=== PATIENT | male | born 1935 | race Caucasian/White ===

== ENCOUNTER → 2019-02-06 | Outpatient (CLI) | payer MEDICARE ==
[~2019-02-06] MED LIST: ASPI325T8 PO; ATEN25TA PO; DOCU100C63 PO; LISI10TA2 PO; PREG150C PO; PROVASTATIN; TRAM50TA PO
--- NOTE | 2019-02-06 17:38 | RAD ---
CT LUMBAR SPINE WO CONTRAST Indication: Lumbar radiculopathy. Exposure: One or more of the following individualized dose reduction techniques were utilized for this examination: 1. Automated exposure control 2. Adjustment of the mA and/or kV according to patient size 3. Use of iterative reconstruction technique. Technique: Standard imaging without intravenous contrast. Comparison: October 03, 2012, but note that different technique was used on the 2 exams limiting comparison. FINDINGS: There has been fusion at L4-L5 and L5-S1 with intervertebral spacers and posterior spinal fixation rods and pedicle screws. No evidence of acute fracture line or aggressive bone destruction. Vertebral body height is intact. Alignment intact without significant spondylolisthesis. T11-T12: Degenerative spondylosis. No high-grade stenosis. T12-L1: Degenerative spondylosis. There is facet joint hypertrophy and ligament flavum calcification. Mild spinal canal effacement without high-grade stenosis. L1-L2: Degenerative spondylosis with facet joint hypertrophic change. Mild narrowing of the spinal canal knee AP diameter. No high-grade osseous spinal stenosis. L2-L3: There appears to have been a prior right laminectomy since the prior scan. Degenerative spondylosis with facet joint hypertrophy and posterior osteophytes. There is disc protrusion and calcification. The spinal canal is partially decompressed since the prior study. At least mild neural foraminal stenosis bilaterally. L3-L4: Degenerative spondylosis with posterior disc protrusion and calcification and facet joint hypertrophic change. The amount of calcified posterior disc protrusion appears slightly greater on today's study. At least moderate spinal stenosis. Moderate to severe neural foraminal stenosis and lateral recess narrowing. L4-L5: Postsurgical changes, no high-grade central spinal canal encroachment. Neural foraminal narrowing bilaterally. L5-S1: Postsurgical changes. No high-grade spinal canal narrowing. Neural foraminal narrowing appears greater on the right. Calcified and ectatic. The aorta is not completely included on on today's exam. 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 Just above this, there is another area of saccular aneurysm which measures at least 3 cm, not readily apparent on the prior study. The right proximal common iliac artery is ectatic similar to prior. IMPRESSION: 1. There appears to have been a laminectomy at L2-S3 on the right since the prior study, resulting in some decompression of the spinal canal at this level. 2. Other postsurgical changes from L4 through S1 are again demonstrated. 3. Multilevel degenerative spondylosis with stenosis is again identified. 4. The degree of calcified disc protrusion at L3-4 appears slightly greater than on the prior study. 5. Otherwise the degenerative findings are roughly similar as the previous exam. 6. Partially visualized aorta is ectatic with at least 2 areas of mild saccular aneurysmal dilatation, appear to have mildly progressed since prior CT exam from 2012. Dedicated abdominal aortic ultrasound or CT recommended for further evaluation. Electronically signed by: Miguel Vasquez MD (02/06/2019 5:35 PM) [id number]
== END | disposition home or self-care (01) ==
LOC: CT 12:18
PROVIDERS: ATTEND Neurological Surgery
DX: M47.26 Other spondylosis with radiculopathy, lumbar region (principal); M48.07 Spinal stenosis, lumbosacral region; M51.16 Intervertebral disc disorders with radiculopathy, lumbar region; M47.814 Spondylosis without myelopathy or radiculopathy, thoracic region; M89.38 Hypertrophy of bone, other site; I72.8 Aneurysm of other specified arteries
CPT/HCPCS: 72131

== ENCOUNTER → 2019-03-29 | Outpatient (CLI) | payer MEDICARE ==
[~2019-03-29] MED LIST changes: +APIX5TAB PO; +FURO-68 PO; +PRAV40TA2 PO; +TAMS0.4C97 PO
--- NOTE | 2019-03-30 12:15 | PAIN ---
DATE OF SERVICE: 03/29/2019 INITIAL CONSULTATION FOR PAIN CLINIC CHIEF COMPLAINT: Low back and right lower extremity pain. HISTORY OF PRESENT ILLNESS: This is an 83-year-old male who presents with history of pain for many years, 10+, status post multiple lumbar surgeries with eventual instrumentation and fusion. He has had multiple physical therapies over the years, also interventional techniques for pain management, facet injections, epidural steroid injections, chiropractic treatment, counseling, and exercise, all of which were only temporary, but they did help to some extent. The patient reports taking tramadol, Lyrica, and Tylenol, all of which do decrease the pain, but only very minimally. The patient reports he has had significant pain in the low back for many years, sometimes better with activity, sometimes worse with activity. The patient describes the pain as stabbing, shooting, throbbing, constant, sharp in the back, changes during the day, radiating down the right leg, and burning pain in the back. The patient reports it awakens him from sleep at least 3-4 times a night, does not affect his bowel or bladder control; however, but does affect his ability to walk. He has significant fatigability, especially in the right leg. The patient rates his disability 0-10, 10 being the worst, is an 8 with social activity, recreation, 6 with family home responsibilities, 5 with occupation, 1 with self-care, and 1 with life support activities. The patient did have recent visit with his neurosurgeon, who is not recommending any further surgery at this time. He did have an MRI scan also showing stable lumbar spine compared with 04/07/2017 posterior fixation at ____ anterior fusion at L4-S1, and right laminotomy at L2-L3 and L5-S1, mild to moderate central canal stenosis at L2-L3 and L3-L4 due to generalized disk disease, lower lumbar facet arthropathy as well. PAST MEDICAL HISTORY: Significant for irregular heart rhythm, cigarette smoking, and arthritis. PREVIOUS SURGERY: Include cataract surgery, lumbar surgery many times with instrumentation and fusion, cholecystectomy, nephrectomy, prostate surgery, and hernia repair in the past. CURRENT MEDICATIONS: Include docusate, aspirin, Lyrica, lisinopril, tramadol, Flomax, pravastatin, Lasix, and Eliquis. ALLERGIES: The patient has no known drug allergies. FAMILY HISTORY: Significant for heart disease. SOCIAL HISTORY: The patient does not drink alcohol, only very rarely, smokes 1 pack of cigarettes, has for 30+ years. He is and lives with his spouse, lives locally in [place], [place]. 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 REVIEW OF SYSTEMS: The patient's review of systems is positive for those items mentioned in history of present illness. All systems reviewed and otherwise negative. It is complete, full and well documented on the patient's chart. PHYSICAL EXAMINATION: VITAL SIGNS: The patient's blood pressure is 124/55, pulse 58, respirations 18, temperature ____ degrees Fahrenheit. Height is 5 feet 11 inches, weight is 230 pounds. GENERAL: The patient is awake, alert, oriented, appropriate, very pleasant demeanor. HEENT: Head shows normocephalic and atraumatic. Extraocular movements are intact and symmetrical. Oral cavity: Mucous membranes are moist and pink. Dentition is intact. NECK: Shows anterior throat is supple, without palpable lymphadenopathy noted. Swallow reflex symmetrical. CHEST: Shows normal on inspection. Breath sounds are clear to auscultation bilaterally. HEART: Shows S1 and S2 clear. No murmurs auscultated. ABDOMEN: Soft, nontender, and nondistended. No palpable organomegaly is noted. No rebound or guarding demonstrated. BACK: Shows spine grossly in the midline. Some significant flattening noted of the lumbar curvature. Paraspinous musculature shows well-healed surgical scarring. Lumbar paraspinous muscles with palpation shows some moderate tenderness diffusely bilaterally without significant radiation, but is very tender throughout the upper, middle, and lower distributions of the paraspinous musculature. The patient shows good rotational motion, slightly limited with extension to less than 10 degrees, right and left lateral rotation at 10 degrees without significant pain reported. Forward flexion is less than 45 degrees, but not secondary to pain, secondary to mechanical limitation. EXTREMITIES: The patient's lower extremities show deep tendon reflexes at 1+ in the patellar and tendocalcaneus tendons. Motor exam is strong with approximately 4 on a scale of 5 on the right and 5/5 on the left with dorsiflexion, extension, quadriceps, and hamstring flexion and symmetrical. Peripheral pulses are 1+ posterior tibia. No peripheral edema is noted. Lower extremities are warm and dry to the touch, equal in color and appearance. Straight leg raise noted to be positive on the right at about 40 degrees, decreased with knee flexion, left side is negative. Gaenslen's and Joel's maneuvers are negative bilaterally. The patient is able to stand, has difficulty trying to stand on the toes. He loses his balance when he is standing on his right leg alone and has a slight favoring gait, does appear to favor the right lower extremity with ambulation, but not using any assistive devices to ambulate such as canes or walkers. SKIN: The patient's skin shows warm and dry, good turgor. No edema. No sores, rashes, or bruising throughout. IMPRESSION: 1. This is an 83-year-old male with long history of low back and right lower extremity pain status post multiple interventions, multiple modalities and therapies as well as surgeries with anterior and posterior fusion and instrumentation with persistent radiculopathy and low back pain. 2. MRI scan of lumbar spine as noted. 3. Irregular heart rate. 4. Arthritis. PLAN: Options were discussed with the patient including conservative medical managements, physical therapies, and interventional techniques. He would like to pursue interventional techniques. We discussed a spinal cord stimulator using description as well as anatomical models to describe the procedure. The patient was given information regarding the stimulator to review. This may be the best option for him with surgical evaluation recently without any further surgical indication. The patient is very interested in this and would like to pursue this. We will make the arrangements for further psychological evaluation and preauthorization for spinal cord stimulator trial. The patient to return once Psychiatry has been cleared and we will proceed at that time. MERLIN LAMBERT MD DR: KENIA/prashanth JOB#: [id number] / [id number]
== END | disposition home or self-care (01) ==
LOC: PNCL 10:25
PROVIDERS: ATTEND Anesthesiology
DX: M79.604 Pain in right leg (principal); M54.5 Low back pain; M19.90 Unspecified osteoarthritis, unspecified site; F17.210 Nicotine dependence, cigarettes, uncomplicated; Z90.49 Acquired absence of other specified parts of digestive tract; Z90.89 Acquired absence of other organs; Z79.82 Long term (current) use of aspirin; Z79.891 Long term (current) use of opiate analgesic; Z79.899 Other long term (current) drug therapy; Z79.1 Long term (current) use of non-steroidal anti-inflammatories (NSAID); Z79.01 Long term (current) use of anticoagulants
CPT/HCPCS: G0463

== ENCOUNTER → 2019-05-01 | Outpatient (CLI) | payer MEDICARE ==
[~2019-05-01] MED LIST changes: +LIDOCAINE 1% PF 2 ML VIAL. ONE
--- NOTE | 2019-05-02 01:55 | PAIN ---
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 HISTORY OF PRESENT ILLNESS: The patient is an 83-year-old male, who returns for followup for a spinal cord stimulator placement today; after psychological evaluation and preauthorization, the patient would like to proceed; still pain in the low back, right lower extremity as it was previously, posterior gluteus, posterolateral thigh, posterior calf and ankle on the right side significantly across the low back to some degree as well. The patient reports it is an 8 on a scale of 10 at all times, over the past week worst, average and least and is an 8 today. Pain is sharp, shooting, burning, radiating, constant, severe, and unbearable at times; worse with getting up and down from positions, better with sitting or lying down, worse with walking. The patient reports it does not awaken him from sleep most nights. PHYSICAL EXAMINATION: VITAL SIGNS: The patient's blood pressure 119/58, pulse 63, respirations 18, temperature 98.0 degree Fahrenheit, weight is 231 pounds. GENERAL: The patient is awake, alert, oriented, appropriate; very pleasant demeanor. The patient is accompanied by his spouse. HEENT: Shows normocephalic, atraumatic. Extraocular movements are intact and symmetrical. Oral cavity: Mucous membrane is moist and pink. Dentition is intact. NECK: Shows anterior throat supple without palpable lymphadenopathy noted. Swallow reflex is symmetrical. CHEST: Shows normal on inspection. Breath sounds are clear to auscultation bilaterally. HEART: Shows S1, S2, clear. No murmurs auscultated. ABDOMEN: Soft, nontender, nondistended. No palpable organomegaly is noted. No rebound or guarding demonstrated. BACK: Shows spine is grossly in the midline; normal appearing thoracic kyphosis and flattening of lumbar lordotic curvature; lumbar paraspinous musculature symmetrical but flattened with well-healed surgical scarring noted. Paraspinous musculature shows, with palpation, it is moderately tender bilaterally diffusely throughout the upper, middle, and lower distribution of paraspinous muscles without radiation. EXTREMITIES: The patient's lower extremities show deep tendon reflexes 1+ in the patellar and tendo-calcaneus tendons. Motor exam is strong with approximately 4 on a scale of 5 with right dorsiflexion, extension 5/5 on the left. Peripheral pulses are 1+. No peripheral edema is noted. IMPRESSION AND PLAN: Options were discussed with the patient. The patient's old chart was reviewed as well as his current medication regimen is updated. Current review of systems is updated today as well. We will proceed with a spinal cord stimulator temporary lead placement x2 today with fluoroscopic guidance. Risks were again discussed including but not limited to bleeding, infection, possibility of epidural hematoma, subsequent neurological compromise, dural puncture, headaches, spinal cord and/or nerve damage, exposure of fluoroscopy as well as poor coverage of stimulation and poor results regarding pain control. The patient understands and wishes to proceed. The patient will return to the clinic in approximately 1 week for followup and evaluation of the stimulator temporary lead placement for trial at that time. PROCEDURE: Temporary spinal cord stimulator lead placement x2 using C-arm fluoroscopic guidance using local anesthetic under sterile prep and drape. The patient was in prone position using C-arm fluoroscopy for both AP and lateral views, entered into the T12-L1 epidural space using preservative-free normal saline loss of resistance technique via a 14-gauge Hustead styletted needle x2 each with preservative-free normal saline, loss of resistance technique, and negative aspiration. Again under direct visualization, spinal cord stimulator wires were threaded first midline without difficulty and verified in the midline by AP view and posterior epidural space bilateral views. Second wire was inserted in the same fashion at the same level with AP and lateral views verifying the midline position to the right of the initial wire placement and posterior in the epidural space with lateral visualization on the C-arm fluoroscopy. Stimulation mapping was then carried out by [employer] InspectorFiliberto, with good coverage of all the areas of pain in the low back and the lower extremities. At this time, the needles were removed. Stylets were removed under intermittent visualization off the leads to ensure no movement. Lidocaine 1% was instilled to prepare for suture placement at the site of the insertion of the stimulator wires. Using 2-0 silk sutures, these were then secured to the skin and anchoring devices applied with the stimulator wires. Sterile Tegaderms and bandage were applied. The patient's condition at discharge was stable. The patient tolerated the procedure well, had no immediate complications, and was discharged at home under his own power with his spouse driving today. The patient will follow up in approximately 1 week for removal and evaluation at that time. MERLIN LAMBERT MD DR: KENIA/prashanth JOB#: [id number] / [id number]
== END ==
LOC: PNCL 12:58
PROVIDERS: ATTEND Anesthesiology
DX: M54.16 Radiculopathy, lumbar region (principal); M96.1 Postlaminectomy syndrome, not elsewhere classified; M48.061 Spinal stenosis, lumbar region without neurogenic claudication
CPT/HCPCS: 63650; C1897

== ENCOUNTER → 2019-05-08 | Outpatient (CLI) | payer MEDICARE ==
[~2019-05-08] MED LIST changes: +ASPI81TA50 PO; -LIDOCAINE 1% PF 2 ML VIAL. ONE
--- NOTE | 2019-05-08 13:14 | PAIN ---
DATE OF SERVICE: 05/08/2019 PROGRESS NOTE FOR PAIN CLINIC DIAGNOSES: Lumbar radiculopathy with lumbar spinal stenosis, lumbar post-laminectomy syndrome. HISTORY OF PRESENT ILLNESS: The patient is an 83-year-old male, who returns for followup status post spinal cord stimulator trial. For the past week, the patient reports he has done quite well, reports about 98% improvement overall. He is unsure, however, if the tramadol that he has been taking for the past few days has made the difference instead of the stimulator. The patient feels that the stimulator did help, but up until the last 2-3 days was not helping significantly. The patient reports that the tramadol has made a big difference, although it was helping him before the trial period as well. He was out of it during the first part of the period and is not sure, which helped more. The patient will continue taking the tramadol as prescribed and see how he does after the trial stimulator is removed today. The patient reports his pain is an 8 on a scale of 10 at its worst over the past week, 4-5 on an average, 2 at its least and is a 2 today. The patient reports it is tingling, burning, dull in the low back and the right lower extremity as it was previously. No new motor or sensory deficits. No new bowel or bladder incontinence or other complaints. PHYSICAL EXAMINATION: VITAL SIGNS: The patient's blood pressure 122/60, pulse 71, respirations 18, temperature 97.7 degrees Fahrenheit, weight is 241 pounds. GENERAL: The patient is awake, alert, oriented, appropriate, very pleasant demeanor. HEENT: Shows normocephalic, atraumatic. Extraocular movements are intact and symmetrical. Oral cavity: Mucous membranes moist and pink. NECK: Shows anterior throat supple. CHEST: Shows normal on inspection. Breath sounds are clear bilaterally. HEART: Shows S1, S2 clear. ABDOMEN: Soft, nontender, nondistended. BACK: The patient's back shows spine grossly in the midline. The patient's bandages from his stimulator trial were taken down; and under sterile technique, sutures were removed and leads were removed x 2. Sites are clean and dry. No erythema, no drainage, no tenderness and no exudate. The patient has good rotational motion of lumbar spine without difficulty. EXTREMITIES: Lower extremities show deep tendon reflexes are 1+ in the patellar and tendo-calcaneus tendons. Motor exam is approximately 4 on a scale of 5 on the right with dorsiflexion and extension, 5/5 on the left. Peripheral pulses are 1+. No peripheral edema is noted bilaterally. Options were discussed with the patient. The patient's old chart was reviewed as his current medication regimen updated. Current review of systems updated today as well. We will make arrangements as the patient would like to schedule discussion with spine surgeon for placement of a permanent stimulator; and in the next few days, again, while the stimulator is removed and still taking his tramadol, we will make a decision whether or not he would like to proceed with the permanent implant. I am going to make the arrangements to speak with the surgeon. If the patient feels that this is not necessary, we will change those arrangements as necessary. MERLIN LAMBERT MD DR: KENIA/prashanth JOB#: [id number] / [id number]
== END | disposition home or self-care (01) ==
LOC: PNCL 11:56
PROVIDERS: ATTEND Anesthesiology
DX: M48.061 Spinal stenosis, lumbar region without neurogenic claudication (principal); M54.16 Radiculopathy, lumbar region; M96.1 Postlaminectomy syndrome, not elsewhere classified
CPT/HCPCS: G0463

== ENCOUNTER 2020-04-24 00:20 | Emergency (ER) | payer MEDICARE ==
[~2020-04-24] VITALS: Ht 180.3 cm; Wt 96.0 kg
[2020-04-24 02:00] VITALS: BP 148/77
--- NOTE | 2020-04-24 02:17 | PHYS DOC ---
Past Medical History Past Medical History: Other Additional Past Medical Histor: CARDIAC DYSRHYTHMIA, KIDNEY REMOVAL. Past Surgical History: Cholecystectomy, Lumbar Laminectomy, Other Additional Past Surgical Histo: KIDNEY REMOVAL. Smoking Status: Current Every Day Smoker Alcohol Use: Rarely General Adult EDM: Chief Complaint: LOWER EXT PAIN HPI: HPI: 84 yo M PMH chronic back pain with RLE neuropathy, presents to the ed with , c/o "all I want is a shot of pain medicine," chronic right hip "burning" radiating pain that goes down his leg, has been present for the past 3 to 4 years. Has had "7-8" back surgeries with Dr. Stein and tramadol is the only thing that works. His primary care physician Dr. Queen prescribes tramadol 50 mg, 8 tablets daily, a 90-day supply at at time. Patient reports ran out on Tuesday and cannot refill the medication until Tuesday (per pcp and pharmacy). Denies any new trauma or new injury. Pain is constant and has not changed. Denies any saddle anesthesia, urinary or bowel retention or incontinence, fever, abdominal pain, syncope or back pain. Pt states he couldn't sleep because of the pain. Cannot take nsaids-only has 1 kidney. MRI lumbar spine from [address] lumbar spine in 2019 reviewed. S/p right laminectomy at L2-S3, multilevel degenerative spondylosis with stenosis, disc protrusion at L3-4, and ectatic saccular aneurysmal dilatation. Review of Systems: Review of Systems: Constitutional: Denies fever or chills. [] Eyes: Denies change in visual acuity. [] HENT: Denies nasal congestion or sore throat. [] Respiratory: Denies cough or shortness of breath. [] Cardiovascular: Denies chest pain or edema. [] GI: Denies abdominal pain, nausea, vomiting, bloody stools or diarrhea. [] : Denies dysuria. [] Or hematuria Musculoskeletal: Denies joint pain. [] Or swelling, no saddle anesthesia, no urinary bowel retention or incontinence Integument: Denies rash. [] Neurologic: Denies headache, focal weakness or sensory changes. [] Endocrine: Denies polyuria or polydipsia. [] Lymphatic: Denies swollen glands. [] Psychiatric: Denies depression or anxiety. [] Heart Score: Risk Factors: Risk Factors: DM, Current or recent (<one month) smoker, HTN, HLP, family history of CAD, obesity. Risk Scores: Score 0 - 3: 2.5% MACE over next 6 weeks - Discharge Home Score 4 - 6: 20.3% MACE over next 6 weeks - Admit for Clinical Observation Score 7 - 10: 72.7% MACE over next 6 weeks - Early Invasive Strategies Allergies: Allergies: Allergies Coded Allergies Type Severity Reaction Last Updated Verified No Known Drug Allergies 04/19/14 No Physical Exam: PE: Constitutional: Well developed, well nourished, no acute distress, non-toxic appearance. [] HENT: Normocephalic, atraumatic, bilateral external ears normal, oropharynx moist, no oral exudates, nose normal. [] Eyes: EOMI, conjunctiva normal, no discharge. [] Neck: Normal range of motion, supple, no stridor. [] Cardiovascular:Heart rate regular rhythm, no murmur [] Lungs & Thorax: Bilateral breath sounds clear to auscultation [] Abdomen: Bowel sounds normal, soft, no tenderness, no masses, no pulsatile masses. [] Skin: Warm, dry, no erythema, no rash. [] Back: No tenderness, no CVA tenderness. [] Extremities: No tenderness, no cyanosis, no clubbing, ROM intact, +1/4 bl reece bauer ma Neurologic: Alert and oriented X 3, normal motor function, normal sensory function, no focal deficits noted. [] Psychologic: Affect normal, judgement normal, mood normal. [] Current Patient Data: Vital Signs: Vital Signs Date Time Temp Pulse Resp B/P (MAP) Pulse Ox O2 Delivery O2 Flow Rate FiO2 04/24/20 02:00 84 18 148/77 (100) 94 Room Air 04/24/20 00:34 98.1 98.1 EKG: EKG: [] Radiology/Procedures: Radiology/Procedures: [] Course & Med Decision Making: Course & Med Decision Making Pertinent Labs and Imaging studies reviewed. (See chart for details) Concern for chronic right lower extremity neuropathy-AAA on differential but pt is calm, mildly hypertensive, in no distress and denies any chest/back/abdominal pain - pain is in right hip and radiates down his leg, no new characteristics of the pain. Pt requesting pain medication, declines any repeat imaging. No new trauma. Red flags for back pain reviewed. Strict ED return precautions were given for worsening pain, abdominal or back pain, syncope, chest pain, neurologic deficits, saddle anesthesia or urinary bowel retention or incontinence. Was given 1 dose of analgesia in the ED and will prescribe Tylenol and gabapentin -patient will be able to fill his medication in 1 day. Encouraged urgent outpatient follow-up with PMD and pain management. Life-threatening processes were considered but are low suspicion at this time, given history and physical exam. Pt was educated on all prescription medications and adverse effects. All patient's questions were answered and pt was stable at time of discharge. Life/limb-threatening differential includes but is not limited to, aortic dissection/aneurysm, cauda equina syndrome, transverse myelitis, spinal cord compression, epidural abscess or hematoma, osteomyelitis, disc herniation, surgical abdomen, stable or unstable fracture, renal colic/urosepsis, musculoskeletal injury, traumatic injury, intraabdominal or pelvic bleeding, I spoken with the patient and her caregivers. I explained the patient's condition, diagnoses and treatment plan based on the information available to me at this time. I have answered the patient and her caregiver's questions and addressed any concerns. The patient and her caregivers have a good understanding of patient's diagnosis, condition and treatment plan as can be expected at this point. Vital signs have been stable. Patient's condition is stable and appropriate for discharge from the emergency department. Patient will pursue further outpatient evaluation with primary care physician or other designated or consulting physician as outlined in the discharge instructions. The patient and/or caregivers are agreeable to this plan of care and follow-up instructions have been explained in detail. The patient and/or caregivers have received these instructions in written form and have expressed an understanding of the discharge instructions. The patient and/or caregivers are aware that any significant change of condition or worsening of symptoms should prompt immediate return to this or the closest emergency department or call to 911. Bi Disclaimer: Bi Disclaimer: This electronic medical record was generated, in whole or in part, using a voice recognition dictation system. Departure Departure Impression: Primary Impression: Chronic pain Additional Impression: Neuropathic pain of right lower extremity Disposition: HOME, SELF-CARE Condition: STABLE Referrals: BOYD QUEEN (PCP) Patient Instructions: Pain, Neuropathic Additional Instructions: FOLLOW UP WITH PAIN MANAGEMENT: [facility] Address: [address] [facility] [address] [address] EMERGENCY DEPARTMENT GENERAL DISCHARGE INSTRUCTIONS Thank you for coming to [facility] Emergency Department (ED) today and trusting us with you care. We trust that you had a positive experience in our Emergency Department. If you wish to speak to the department management, you may call the Director at [phone]. YOUR FOLLOW UP INSTRUCTIONS ARE FOLLOWS: 1. Do you have a private Doctor? If you do not have a private doctor, please ask for a resource list of physicians or clinics that may be able to assist you with follow up care. 2. The Emergency Physicain has interpreted your x-rays. The X-Ray specialist will also review them. If there is a change in the findings, you will be notified in 48 hours when at all possible. 3. A lab test or culture has been done, your results will be reviewed and you will be notified if you need a change in treatment. ADDITIONAL INSTRUCTIONS AND INFORMATION: 1. Your care today has been supervised by a physician who is specially trained in emergency care. Many problems require more than one evaluation for a complete diagnosis and treatment. We recommend that you schedule your follow up appointment as recommended to ensure complete treatment of you illness or injury. If you are unable to obtain follow up care and continue to have a problem, or if your condition worsens, we recommend that you return to the ED. 2. We are not able to safely determine your condition over the phone nor are we able to give sound medical advice over the phone. For these safety reasons, if you call for medical advice we will ask you to come to the ED for further evaluation. 3. If you have any questions regarding these discharge instructions please call the ED at [phone]. SAFETY INFORMATION: In the interest of safety, wellness, and injury prevention; we encourage you to wear your sealbelt, if you smoke; quite smoking, and we encourage family to use a protective helmet for bicycling and other sporting events that present an increased risk for head injury. IF YOUR SYMPTOMS WORSEN OR NEW SYMPTOMS DEVELOP, OR YOU HAVE CONCERNS ABOUT YOUR CONDITION; OR IF YOUR CONDITION WORSENS WHILE YOU ARE WAITING FOR YOUR FOLLOW UP APPOINTMENT; EITHER CONTACT YOUR PRIMARY CARE DOCTOR, THE PHYSICIAN WHOSE NAME AND NUMBER YOU WERE GIVEN, OR RETURN TO THE ED IMMEDIATELY. Scripts Acetaminophen (TYLENOL) 325 Mg Tablet 2 TAB PO QID for 7 Days, #56 TAB 2 Refills Prov: AUSTYN KIMBLE DO 04/24/20 Gabapentin (GABAPENTIN) 600 Mg Tablet 600 MG PO TID for NEUROGENIC PAIN for 7 Days, #21 TAB Prov: AUSTYN KIMBLE DO 04/24/20 AUSTYN KIMBLE DO Apr 24, 2020 02:17
[2020-04-24] MEDS ORDERED: traMADol 50 MG TABLET PO ONE (03:00)
[2020-04-24] MEDS ORDERED: ACET325T9 PO (03:00)
[2020-04-24] MEDS ORDERED: GABA600T7 PO (03:00)
== END 2020-04-24 03:12 | disposition home or self-care (01) ==
LOC: ER 00:20
DX: G89.29 Other chronic pain (principal); M79.604 Pain in right leg; G62.9 Polyneuropathy, unspecified; R20.8 Other disturbances of skin sensation; F17.200 Nicotine dependence, unspecified, uncomplicated; Z90.89 Acquired absence of other organs; Z90.49 Acquired absence of other specified parts of digestive tract; Z98.890 Other specified postprocedural states
CPT/HCPCS: 99283

== ENCOUNTER 2021-10-28 17:47 | Inpatient (IN) | payer MEDICARE ==
[~2021-10-28] VITALS: Ht 177.8 cm; Wt 108.4 kg
[~2021-10-28 17:47] MED LIST changes: +ACET325T9 PO; +GABA600T7 PO; +LISI10TA16 PO; -LISI10TA2 PO
[2021-10-28 18:31] LABS: BASE EXCESS COOX -1 mmol/L (-3-3); HCO3 COOX 23 mmol/L (21-28); METHEMOGLOBIN 1.3 % (0.0-1.9); OXYHEMOGLOBIN 50.1 %; PCO2 COOX 36 mmHg (35-46)
[2021-10-28 18:37] LABS: PO2 COOX < 42 mmHg (65-108); SAT O2 COOX 51 % (92-99)
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
[2021-10-28 19:21] LABS: BASO % 1 % (0-3); EOS % 0 % (0-3); LYMPH # 0.6 x10^3/uL (1.0-4.8); LYMPH % 12 % (24-48); MEAN CORPUSCULAR HEMOGLOBIN 24 pg (25-35); MEAN CORPUSCULAR HGB CONC 31 g/dL (31-37); MEAN CORPUSCULAR VOLUME 78 fL (79-100); MONO # 0.3 x10^3/uL (0.0-1.1); MONO % 7 % (0-9); NEUT # 4.2 x10^3/uL (1.8-7.7); NEUT % 81 % (31-73); PLATELET COUNT 156 x10^3/uL (140-400); RED CELL DISTRIBUTION WIDTH 19.3 % (11.5-14.5); WHITE BLOOD COUNT 5.1 x10^3/uL (4.0-11.0)
[2021-10-28 19:24] LABS: HEMOGLOBIN 4.3 g/dL (13.0-17.5)
[2021-10-28 19:37] LABS: FECAL OB PT POSITIVE (NEG)
[2021-10-28 19:39] LABS: CALCIUM 8.5 mg/dL (8.5-10.1); CREATININE 2.2 mg/dL (0.7-1.3); GFR 28.5; POTASSIUM 3.4 mmol/L (3.5-5.1)
[2021-10-28 19:44] LABS: ALBUMIN 2.6 g/dL (3.4-5.0); ALBUMIN/GLOBULIN RATIO 0.9 (1.0-1.7); MAGNESIUM 1.9 mg/dL (1.8-2.4); TOTAL BILIRUBIN 0.5 mg/dL (0.2-1.0); TOTAL PROTEIN 5.6 g/dL (6.4-8.2)
[2021-10-28] MEDS ORDERED: PANTOPRAZOLE IV PUSH 40 MG VIAL. IVP ONE (19:45)
--- NOTE | 2021-10-28 19:57 | RAD ---
AP chest. HISTORY: Short of breath AP view was taken of the chest. Heart is normal in size. There are stimulating leads in the thoracic spinal canal. There is linear scarring or atelectasis in the lung bases. There are no other infiltrat es. There is no effusion. 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 IMPRESSION: 1. There is mild linear basilar scarring or atelectasis without other infiltrates. Electronically signed by: Andres Tovar MD (10/28/2021 7:54 PM) [facility]
[2021-10-28] MEDS: PANTOPRAZOLE SODIUM IV DRIP 80 MG in IV NORMAL SALINE 100ML 100 ML IV SCH (20:29)
[2021-10-28 20:32] LABS: INFLUENZA A PATIENT NEGATIVE (NEGATIVE); INFLUENZA B PATIENT NEGATIVE (NEGATIVE)
[2021-10-28 21:41] VITALS: BP 144/66
[2021-10-28 21:57] VITALS: BP 149/66
[2021-10-28 23:30] VITALS: BP 151/64
[2021-10-28 23:45] VITALS: BP 134/58
[2021-10-29] VITALS (35 sets, daily range): BP systolic 113–161; BP diastolic 47–88
[2021-10-29 00:43] LABS: BACTERIA,URINE MODERATE /HPF (0-FEW); RBC,URINE 0 /HPF (0-2); WBC,URINE TNTC /HPF (0-4)
--- NOTE | 2021-10-29 01:00 | NUR ---
Admitted to ICU room 106 from the ED. Report received from TAMRA Choe. Blood and protonix infusing. Patient awake and able to answer some questions. Family not available at time of admit for further information. Patient reports feeling "tired" and falls asleep easily. No other complaints at this time. NPO. VSS. One more unit PRBCs to infuse. Will continue to monitor.
[2021-10-29] MEDS: PANTOPRAZOLE SODIUM IV DRIP 80 MG in IV NORMAL SALINE 100ML 100 ML IV SCH (04:51)
[2021-10-29 05:29] LABS: BASO % 1 % (0-3); EOS % 1 % (0-3); HEMATOCRIT 21.1 % (39.0-53.0); LYMPH # 1.2 x10^3/uL (1.0-4.8); LYMPH % 23 % (24-48); MEAN CORPUSCULAR HEMOGLOBIN 25 pg (25-35); MEAN CORPUSCULAR HGB CONC 31 g/dL (31-37); MEAN CORPUSCULAR VOLUME 79 fL (79-100); MONO # 0.4 x10^3/uL (0.0-1.1); MONO % 8 % (0-9); NEUT # 3.4 x10^3/uL (1.8-7.7); NEUT % 67 % (31-73); PLATELET COUNT 138 x10^3/uL (140-400); RED BLOOD COUNT 2.66 x10^6/uL (4.30-5.70); RED CELL DISTRIBUTION WIDTH 18.1 % (11.5-14.5); WHITE BLOOD COUNT 5.1 x10^3/uL (4.0-11.0)
[2021-10-29 05:42] LABS: HEMOGLOBIN 6.6 g/dL (13.0-17.5)
[2021-10-29 06:07] LABS: CALCIUM 8.5 mg/dL (8.5-10.1); GFR 31.8; POTASSIUM 3.2 mmol/L (3.5-5.1)
--- NOTE | 2021-10-29 07:50 | EKG ---
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
--- NOTE | 2021-10-29 08:39 | EKG ---
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
--- NOTE | 2021-10-29 09:22 | PDOC2 ---
GI CONSULT Date of Service: DATE: 10/29/21 TIME: : Reason For Consult: severe anemia, GI bleed HPI: HPI: 86 y/o male in ICU, nurse present. He's not a good historian, poor short term memory - doesn't know why he came to the hospital. Per chart and nurse, family reported worsening shortness and breath and BLE edema. Noted w/ Hgb 4.3, MCV 78, INR 1.5 (on Eliquis, also ASA), BUN 44, Cr 2.2, elevated troponin and BNP, +Hemoccult. Transfusions ongoing, Hgb improved to 6.6. No reports of obvious bleeding. He denies reflux/heartburn, dysphagia, n/v, abd pain, diarrhea, constipation, hematochezia, melena, change in appetite, weight loss. EGD and colonoscopy by Dr. Jordan in 06/2009 for atypical chest pain, dyspepsia, dysphagia/odynophagia, and CRC screening showed small hiatal hernia, eryt hematous mucosa in lower third of esophagus (biopsy w/ non-specific inflammation, negative for Melton's), bilious fluid in stomach body, erythema, congestion, and friability in antrum and stomach body (biopsy w/ mild reactive gastropathy and negative for H. pylori), atrophy, congestion, and erythema in duodenal bulb and second part of duodenum (biopsy negative for pathology and ce liac sprue), normal mucosa in the whole colon, 4mm adenomatous transverse colon polyp, 3mm adenomatous rectal polyp, sigmoid diverticulosis, and internal hemorrhoids. Also had 'scopes [place] [address] Jordan. S/p cholecystectomy in 2004 for right-sided midabdominal and flank pain w/ reproduction of pain w/ Kinevac injection during PIPIDA. Old office records indicate h/o GERD, constipation, and fatty liver. His preferred name is Deangelo. He really wants something to eat. PMH: PMH: CAD, A Fib, CHF, DC, HTN, BPH, UTI, DM, arthritis back surgeries, prostate surgery, hernia repair, left nephrectomy, right leg cyst removal, angioplasty, choelcsytectomy FH: Family History: CAD Social History: Smoke: Quit ALCOHOL: none Drugs: None ROS: See HPI. Vitals: Vitals: Vital Signs Date Time Temp Pulse Resp B/P (MAP) Pulse Ox O2 Delivery O2 Flow Rate FiO2 10/29/21 09:13 99.0 61 24 141/65 99.0 10/29/21 06:00 100 Room Air Labs: Labs: Laboratory Tests Test 10/28/21 18:16 10/28/21 18:40 10/28/21 19:30 10/28/21 20:10 O2 Saturation 51 % (92-99) Arterial Blood pH 7.43 (7.35-7.45) Arterial Blood pCO2 at Patient Temp 36 mmHg (35-46) Arterial Blood pO2 at Patient Temp < 42 mmHg (65-108) Arterial Blood HCO3 23 mmol/L (21-28) Arterial Blood Base Excess -1 mmol/L (-3-3) Oxyhemoglobin 50.1 % Methemoglobin 1.3 % (0.0-1.9) Carbon Monoxide, Quantitative 0.5 % (0.0-1.9) FiO2 40 White Blood Count 5.1 x10^3/uL (4.0-11.0) Red Blood Count 1.80 x10^6/uL (4.30-5.70) Hemoglobin 4.3 g/dL (13.0-17.5) Hematocrit 14.0 % (39.0-53.0) Mean Corpuscular Volume 78 fL (79-100) Mean Corpuscular Hemoglobin 24 pg (25-35) Mean Corpuscular Hemoglobin Concent 31 g/dL (31-37) Red Cell Distribution Width 19.3 % (11.5-14.5) Platelet Count 156 x10^3/uL (140-400) Neutrophils (%) (Auto) 81 % (31-73) Lymphocytes (%) (Auto) 12 % (24-48) Monocytes (%) (Auto) 7 % (0-9) Eosinophils (%) (Auto) 0 % (0-3) Basophils (%) (Auto) 1 % (0-3) Neutrophils # (Auto) 4.2 x10^3/uL (1.8-7.7) Lymphocytes # (Auto) 0.6 x10^3/uL (1.0-4.8) Monocytes # (Auto) 0.3 x10^3/uL (0.0-1.1) Eosinophils # (Auto) 0.0 x10^3/uL (0.0-0.7) Basophils # (Auto) 0.0 x10^3/uL (0.0-0.2) Prothrombin Time 18.0 SEC (11.7-14.0) Prothromb Time International Ratio 1.5 (0.8-1.1) Sodium Level 136 mmol/L (136-145) Potassium Level 3.4 mmol/L (3.5-5.1) Chloride Level 100 mmol/L (98-107) Carbon Dioxide Level 24 mmol/L (21-32) Anion Gap 12 (6-14) Blood Urea Nitrogen 44 mg/dL (8-26) Creatinine 2.2 mg/dL (0.7-1.3) Estimated GFR (Cockcroft-Gault) 28.5 BUN/Creatinine Ratio 20 (6-20) Glucose Level 128 mg/dL (70-99) Calcium Level 8.5 mg/dL (8.5-10.1) Magnesium Level 1.9 mg/dL (1.8-2.4) Total Bilirubin 0.5 mg/dL (0.2-1.0) Aspartate Amino Transf (AST/SGOT) 18 U/L (15-37) Alanine Aminotransferase (ALT/SGPT) 15 U/L (16-63) Alkaline Phosphatase 54 U/L (46-116) Troponin I High Sensitivity 407 ng/L (4-75) JI-Jav-O-Type Natriuretic Peptide 4381 pg/mL (0-449) Total Protein 5.6 g/dL (6.4-8.2) Albumin 2.6 g/dL (3.4-5.0) Albumin/Globulin Ratio 0.9 (1.0-1.7) Stool Occult Blood Positive (NEG) Influenza Type A Antigen Negative (NEGATIVE) Influenza Type B Antigen Negative (NEGATIVE) SARS-CoV-2 Antigen (Rapid) Negative (NEGATIVE) Test 10/29/21 00:10 10/29/21 04:40 Urine Collection Type U cath Urine Color (Auto) Light yellow Urine Turbidity Hazy Urine pH (Auto) 5.5 (<5.0-8.0) Urine Specific [place] 1.012 (1.000-1.030) Urine Protein (Auto) Negative mg/dL (Negative) Urine Glucose (Auto)(UA) Negative mg/dL (Negative) Urine Ketones (Auto) Negative mg/dL (Negative) Urine Blood (Auto) Negative (Negative) Urine Nitrite Negative (Negative) Urine Bilirubin (Auto) Negative (Negative) Urine Urobilinogen (Auto) Normal mg/dL (Normal) Urine Leukocyte Esterase (Auto) Large (Negative) Urine RBC 0 /HPF (0-2) Urine WBC Tntc /HPF (0-4) Urine Squamous Epithelial Cells None /LPF Urine Bacteria Moderate /HPF (0-FEW) Urine Mucus Slight /LPF White Blood Count 5.1 x10^3/uL (4.0-11.0) Red Blood Count 2.66 x10^6/uL (4.30-5.70) Hemoglobin 6.6 g/dL (13.0-17.5) Hematocrit 21.1 % (39.0-53.0) Mean Corpuscular Volume 79 fL (79-100) Mean Corpuscular Hemoglobin 25 pg (25-35) Mean Corpuscular Hemoglobin Concent 31 g/dL (31-37) Red Cell Distribution Width 18.1 % (11.5-14.5) Platelet Count 138 x10^3/uL (140-400) Neutrophils (%) (Auto) 67 % (31-73) Lymphocytes (%) (Auto) 23 % (24-48) Monocytes (%) (Auto) 8 % (0-9) Eosinophils (%) (Auto) 1 % (0-3) Basophils (%) (Auto) 1 % (0-3) Neutrophils # (Auto) 3.4 x10^3/uL (1.8-7.7) Lymphocytes # (Auto) 1.2 x10^3/uL (1.0-4.8) Monocytes # (Auto) 0.4 x10^3/uL (0.0-1.1) Eosinophils # (Auto) 0.0 x10^3/uL (0.0-0.7) Basophils # (Auto) 0.0 x10^3/uL (0.0-0.2) Sodium Level 139 mmol/L (136-145) Potassium Level 3.2 mmol/L (3.5-5.1) Chloride Level 103 mmol/L (98-107) Carbon Dioxide Level 24 mmol/L (21-32) Anion Gap 12 (6-14) Blood Urea Nitrogen 40 mg/dL (8-26) Creatinine 2.0 mg/dL (0.7-1.3) Estimated GFR (Cockcroft-Gault) 31.8 Glucose Level 109 mg/dL (70-99) Calcium Level 8.5 mg/dL (8.5-10.1) Magnesium Level 2.1 mg/dL (1.8-2.4) Allergies: Coded Allergies: No Known Drug Allergies (Unverified , 04/19/14) Medications: Current Medications Medications (Trade) Dose Ordered Sig/Facundo Route PRN Reason Start Time Stop Time Status Last Admin Dose Admin Pantoprazole Sodium 80 mg/ Sodium Chloride 100 ml @ 10 mls/hr Q10H IV 10/28/21 20:00 10/29/21 04:51 Pantoprazole Sodium (PROTONIX VIAL for IV PUSH) 80 mg 1X ONCE IVP 10/28/21 19:45 10/28/21 19:46 DC 10/28/21 20:29 Imaging: Imaging: CXR IMPRESSION: 1. There is mild linear basilar scarring or atelectasis without other infiltrates. PE: GEN: NAD HEENT: Atraumatic, PERRL LUNGS: clear anteriorly, room air HEART: irregular ABD: NABS, S/ND/NT EXTREMITY: BLE pitting edema SKIN: No rashes, no jaundice NEURO/PSYCH: A & O 3, memory loss A/P: A/P: Shortness of breath, BLE edema, fatigue Microcytic anemia, +Hemoccult H/o GERD CRC screen, h/o adenomatous polyps - colonoscopy in 2008 Diverticulosis, hemorrhoids S/p cholecystectomy H/o fatty liver H/o A Fib, CAD, and CKD on Eliquis and ASA - elevated troponin and BNP ?UTI Rapid COVID negative -- Reviewed w/ Dr. Jordan - no plans for EGD right away considering advanced age and other issues. Continue transfusions for Hgb > 7, try clear liquids, continue PPI, observe for bleeding, hold Eliquis and ASA. [place] Oct 29, 2021 09:22
--- NOTE | 2021-10-29 11:16 | PDOC1 ---
History and Physical Date of Admission Date of Admission DATE: 10/29/21 TIME: 11:03 Identification/Chief Complaint Chief Complaint Shortness of breath, lower extremity swelling Source Source: Caregiver, Chart review History of Present Illness History of Present Illness Patient is a 86-year-old with past medical history CKD with one kidney, CHF, BPH, atrial fibrillation, CAD with stent, DM2, who presents to the ED with complaints of lower extremity swelling and exertional dyspnea over the past 3 days. At home patient's family noticed he was more pale than usual as well. Upon arrival in the ED his labs showed hemoglobin 4.3, hematocrit 14, potassium 3.4, BUN 44, creatinine 2.2, proBNP 4381, albumin 2.6. His urinalysis showed large leukocyte esterase, white blood cells too numerous to count, moderate bacteria, and he was nitrite negative. His stool occult blood was positive. ABG on arrival showed O2 saturation 51, with PO2 42. Chest x-ray showed mild linear scarring or atelectasis without infiltrate. Patient's not sure about any dark stools or bloody stools, as he states he does not normally look at his stools. Due to profound anemia patient's been admitted to ICU for further medical management. Past Medical History Past Medical History CKD, CHF, BPH, HLD, atrial fibrillation, CAD with stents, DM2, HTN Past Surgical History Past Surgical History Renal stents, nephrectomy Family History Family History: Hypertension Social History Smoke: 1 pack per day ALCOHOL: none Drugs: None Current Problem List Problem List Problems Medical Problems: (1) Congestive heart failure Status: Acute (2) GI bleed Status: Acute (3) Lower extremity edema Status: Acute (4) Severe anemia Status: Acute Current Medications Current Medications Current Medications Pantoprazole Sodium 80 mg/ Sodium Chloride 100 ml @ 10 mls/hr Q10H IV Last administered on 10/29/21at 04:51; Start 10/28/21 at 20:00; Stop 10/29/21 at 09:49; Status DC Pantoprazole Sodium (PROTONIX VIAL for IV PUSH) 80 mg 1X ONCE IVP Last administered on 10/28/21at 20:29; Start 10/28/21 at 19:45; Stop 10/28/21 at 19:46; Status DC Pantoprazole Sodium (PROTONIX VIAL for IV PUSH) 40 mg BIDAC IVP ; Start 10/29/21 at 16:30 Active Scripts Active Tylenol (Acetaminophen) 325 Mg Tablet 2 Tab PO QID 7 Days Gabapentin 600 Mg Tablet 600 Mg PO TID 7 Days Reported Aspir-Low (Aspirin) 81 Mg Tablet.dr 1 Tab PO DAILY Eliquis (Apixaban) 5 Mg Tablet 5 Mg PO BID Pravastatin Sodium 40 Mg Tablet 1 Tab PO QHS Lasix (Furosemide) 40 Mg Tablet 40 Mg PO BID Flomax (Tamsulosin Hcl) 0.4 Mg Cap.er.24h 1 Cap PO BID Tramadol Hcl 50 Mg Tablet 50 Mg PO DAILY PRN Lisinopril 10 Mg Tablet 10 Mg PO DAILY Lyrica (Pregabalin) 150 Mg Capsule 150 Cap PO BID 30 Days Rosales' Laxative (Docusate Sodium) 100 Mg Capsule 100 Mg PO Allergies Allergies: Coded Allergies: No Known Drug Allergies (Unverified , 04/19/14) ROS Review of System GENERAL: Weakness. No history of weight change or fevers. SKIN: No bruising, hair changes or rashes. EYES: No blurred, double or loss of vision. NOSE AND THROAT: No history of nosebleeds, hoarseness or sore throat. HEART: Denies chest pain, denies palpitations. LUNGS: Denies cough, hemoptysis, wheezing or shortness of breath. GASTROINTESTINAL: Denies nausea, vomiting, abdominal pain. GENITOURINARY: Denies dysuria, frequency, urgency, hematuria. NEUROLOGIC: Denies history of numbness, tingling, tremor or weakness. PSYCHIATRIC: Denies anxiety, denies depression. ENDOCRINE: No history of heat or cold intolerance, polyuria or polydipsia. EXTREMITIES: Lower extremity swelling and pain. Denies joint pain, pain on walking or stiffness. Physical Exam Physical Exam General: Alert, Oriented X3, Cooperative, mild distress. Obese. HEENT: Atraumatic, EOMI Lungs: Bibasilar rales Heart: Irregularly irregular, no rubs Cardiovascular: S1, S2, S3 Abdomen: Normal bowel sounds, Soft, No tenderness Extremities: 3+ bilateral leg edema Skin: No breakdown, No significant lesion Neuro: Normal speech, Sensation intact Psych/Mental Status: Confused, Mood NL Vitals Vitals Vital Signs Date Time Temp Pulse Resp B/P (MAP) Pulse Ox O2 Delivery O2 Flow Rate FiO2 10/29/21 09:13 99.0 61 24 141/65 99.0 4/14/22 08:00 Room Air 10/29/21 06:00 100 Labs Labs Laboratory Tests Test 10/28/21 18:16 10/28/21 18:40 10/28/21 19:30 10/28/21 20:10 O2 Saturation 51 % (92-99) Arterial Blood pH 7.43 (7.35-7.45) Arterial Blood pCO2 at Patient Temp 36 mmHg (35-46) Arterial Blood pO2 at Patient Temp < 42 mmHg (65-108) Arterial Blood HCO3 23 mmol/L (21-28) Arterial Blood Base Excess -1 mmol/L (-3-3) Oxyhemoglobin 50.1 % Methemoglobin 1.3 % (0.0-1.9) Carbon Monoxide, Quantitative 0.5 % (0.0-1.9) FiO2 40 White Blood Count 5.1 x10^3/uL (4.0-11.0) Red Blood Count 1.80 x10^6/uL (4.30-5.70) Hemoglobin 4.3 g/dL (13.0-17.5) Hematocrit 14.0 % (39.0-53.0) Mean Corpuscular Volume 78 fL (79-100) Mean Corpuscular Hemoglobin 24 pg (25-35) Mean Corpuscular Hemoglobin Concent 31 g/dL (31-37) Red Cell Distribution Width 19.3 % (11.5-14.5) Platelet Count 156 x10^3/uL (140-400) Neutrophils (%) (Auto) 81 % (31-73) Lymphocytes (%) (Auto) 12 % (24-48) Monocytes (%) (Auto) 7 % (0-9) Eosinophils (%) (Auto) 0 % (0-3) Basophils (%) (Auto) 1 % (0-3) Neutrophils # (Auto) 4.2 x10^3/uL (1.8-7.7) Lymphocytes # (Auto) 0.6 x10^3/uL (1.0-4.8) Monocytes # (Auto) 0.3 x10^3/uL (0.0-1.1) Eosinophils # (Auto) 0.0 x10^3/uL (0.0-0.7) Basophils # (Auto) 0.0 x10^3/uL (0.0-0.2) Prothrombin Time 18.0 SEC (11.7-14.0) Prothromb Time International Ratio 1.5 (0.8-1.1) Sodium Level 136 mmol/L (136-145) Potassium Level 3.4 mmol/L (3.5-5.1) Chloride Level 100 mmol/L (98-107) Carbon Dioxide Level 24 mmol/L (21-32) Anion Gap 12 (6-14) Blood Urea Nitrogen 44 mg/dL (8-26) Creatinine 2.2 mg/dL (0.7-1.3) Estimated GFR (Cockcroft-Gault) 28.5 BUN/Creatinine Ratio 20 (6-20) Glucose Level 128 mg/dL (70-99) Calcium Level 8.5 mg/dL (8.5-10.1) Magnesium Level 1.9 mg/dL (1.8-2.4) Total Bilirubin 0.5 mg/dL (0.2-1.0) Aspartate Amino Transf (AST/SGOT) 18 U/L (15-37) Alanine Aminotransferase (ALT/SGPT) 15 U/L (16-63) Alkaline Phosphatase 54 U/L (46-116) Troponin I High Sensitivity 407 ng/L (4-75) PE-Tpz-V-Type Natriuretic Peptide 4381 pg/mL (0-449) Total Protein 5.6 g/dL (6.4-8.2) Albumin 2.6 g/dL (3.4-5.0) Albumin/Globulin Ratio 0.9 (1.0-1.7) Stool Occult Blood Positive (NEG) Influenza Type A Antigen Negative (NEGATIVE) Influenza Type B Antigen Negative (NEGATIVE) SARS-CoV-2 Antigen (Rapid) Negative (NEGATIVE) Test 10/29/21 00:10 10/29/21 04:40 Urine Collection Type U cath Urine Color (Auto) Light yellow Urine Turbidity Hazy Urine pH (Auto) 5.5 (<5.0-8.0) Urine Specific [place] 1.012 (1.000-1.030) Urine Protein (Auto) Negative mg/dL (Negative) Urine Glucose (Auto)(UA) Negative mg/dL (Negative) Urine Ketones (Auto) Negative mg/dL (Negative) Urine Blood (Auto) Negative (Negative) Urine Nitrite Negative (Negative) Urine Bilirubin (Auto) Negative (Negative) Urine Urobilinogen (Auto) Normal mg/dL (Normal) Urine Leukocyte Esterase (Auto) Large (Negative) Urine RBC 0 /HPF (0-2) Urine WBC Tntc /HPF (0-4) Urine Squamous Epithelial Cells None /LPF Urine Bacteria Moderate /HPF (0-FEW) Urine Mucus Slight /LPF White Blood Count 5.1 x10^3/uL (4.0-11.0) Red Blood Count 2.66 x10^6/uL (4.30-5.70) Hemoglobin 6.6 g/dL (13.0-17.5) Hematocrit 21.1 % (39.0-53.0) Mean Corpuscular Volume 79 fL (79-100) Mean Corpuscular Hemoglobin 25 pg (25-35) Mean Corpuscular Hemoglobin Concent 31 g/dL (31-37) Red Cell Distribution Width 18.1 % (11.5-14.5) Platelet Count 138 x10^3/uL (140-400) Neutrophils (%) (Auto) 67 % (31-73) Lymphocytes (%) (Auto) 23 % (24-48) Monocytes (%) (Auto) 8 % (0-9) Eosinophils (%) (Auto) 1 % (0-3) Basophils (%) (Auto) 1 % (0-3) Neutrophils # (Auto) 3.4 x10^3/uL (1.8-7.7) Lymphocytes # (Auto) 1.2 x10^3/uL (1.0-4.8) Monocytes # (Auto) 0.4 x10^3/uL (0.0-1.1) Eosinophils # (Auto) 0.0 x10^3/uL (0.0-0.7) Basophils # (Auto) 0.0 x10^3/uL (0.0-0.2) Sodium Level 139 mmol/L (136-145) Potassium Level 3.2 mmol/L (3.5-5.1) Chloride Level 103 mmol/L (98-107) Carbon Dioxide Level 24 mmol/L (21-32) Anion Gap 12 (6-14) Blood Urea Nitrogen 40 mg/dL (8-26) Creatinine 2.0 mg/dL (0.7-1.3) Estimated GFR (Cockcroft-Gault) 31.8 Glucose Level 109 mg/dL (70-99) Calcium Level 8.5 mg/dL (8.5-10.1) Magnesium Level 2.1 mg/dL (1.8-2.4) Iron Level 14 ug/dL (65-175) Total Iron Binding Capacity 300 ug/dL (250-450) Iron Saturation 5 % (15-34) Laboratory Tests Test 10/28/21 18:16 10/28/21 18:40 10/28/21 19:30 10/28/21 20:10 O2 Saturation 51 % (92-99) Arterial Blood pH 7.43 (7.35-7.45) Arterial Blood pCO2 at Patient Temp 36 mmHg (35-46) Arterial Blood pO2 at Patient Temp < 42 mmHg (65-108) Arterial Blood HCO3 23 mmol/L (21-28) Arterial Blood Base Excess -1 mmol/L (-3-3) Oxyhemoglobin 50.1 % Methemoglobin 1.3 % (0.0-1.9) Carbon Monoxide, Quantitative 0.5 % (0.0-1.9) FiO2 40 White Blood Count 5.1 x10^3/uL (4.0-11.0) Red Blood Count 1.80 x10^6/uL (4.30-5.70) Hemoglobin 4.3 g/dL (13.0-17.5) Hematocrit 14.0 % (39.0-53.0) Mean Corpuscular Volume 78 fL (79-100) Mean Corpuscular Hemoglobin 24 pg (25-35) Mean Corpuscular Hemoglobin Concent 31 g/dL (31-37) Red Cell Distribution Width 19.3 % (11.5-14.5) Platelet Count 156 x10^3/uL (140-400) Neutrophils (%) (Auto) 81 % (31-73) Lymphocytes (%) (Auto) 12 % (24-48) Monocytes (%) (Auto) 7 % (0-9) Eosinophils (%) (Auto) 0 % (0-3) Basophils (%) (Auto) 1 % (0-3) Neutrophils # (Auto) 4.2 x10^3/uL (1.8-7.7) Lymphocytes # (Auto) 0.6 x10^3/uL (1.0-4.8) Monocytes # (Auto) 0.3 x10^3/uL (0.0-1.1) Eosinophils # (Auto) 0.0 x10^3/uL (0.0-0.7) Basophils # (Auto) 0.0 x10^3/uL (0.0-0.2) Prothrombin Time 18.0 SEC (11.7-14.0) Prothromb Time International Ratio 1.5 (0.8-1.1) Sodium Level 136 mmol/L (136-145) Potassium Level 3.4 mmol/L (3.5-5.1) Chloride Level 100 mmol/L (98-107) Carbon Dioxide Level 24 mmol/L (21-32) Anion Gap 12 (6-14) Blood Urea Nitrogen 44 mg/dL (8-26) Creatinine 2.2 mg/dL (0.7-1.3) Estimated GFR (Cockcroft-Gault) 28.5 BUN/Creatinine Ratio 20 (6-20) Glucose Level 128 mg/dL (70-99) Calcium Level 8.5 mg/dL (8.5-10.1) Magnesium Level 1.9 mg/dL (1.8-2.4) Total Bilirubin 0.5 mg/dL (0.2-1.0) Aspartate Amino Transf (AST/SGOT) 18 U/L (15-37) Alanine Aminotransferase (ALT/SGPT) 15 U/L (16-63) Alkaline Phosphatase 54 U/L (46-116) Troponin I High Sensitivity 407 ng/L (4-75) UD-Foe-H-Type Natriuretic Peptide 4381 pg/mL (0-449) Total Protein 5.6 g/dL (6.4-8.2) Albumin 2.6 g/dL (3.4-5.0) Albumin/Globulin Ratio 0.9 (1.0-1.7) Stool Occult Blood Positive (NEG) Influenza Type A Antigen Negative (NEGATIVE) Influenza Type B Antigen Negative (NEGATIVE) SARS-CoV-2 Antigen (Rapid) Negative (NEGATIVE) Test 10/29/21 00:10 10/29/21 04:40 Urine Collection Type U cath Urine Color (Auto) Light yellow Urine Turbidity Hazy Urine pH (Auto) 5.5 (<5.0-8.0) Urine Specific [place] 1.012 (1.000-1.030) Urine Protein (Auto) Negative mg/dL (Negative) Urine Glucose (Auto)(UA) Negative mg/dL (Negative) Urine Ketones (Auto) Negative mg/dL (Negative) Urine Blood (Auto) Negative (Negative) Urine Nitrite Negative (Negative) Urine Bilirubin (Auto) Negative (Negative) Urine Urobilinogen (Auto) Normal mg/dL (Normal) Urine Leukocyte Esterase (Auto) Large (Negative) Urine RBC 0 /HPF (0-2) Urine WBC Tntc /HPF (0-4) Urine Squamous Epithelial Cells None /LPF Urine Bacteria Moderate /HPF (0-FEW) Urine Mucus Slight /LPF White Blood Count 5.1 x10^3/uL (4.0-11.0) Red Blood Count 2.66 x10^6/uL (4.30-5.70) Hemoglobin 6.6 g/dL (13.0-17.5) Hematocrit 21.1 % (39.0-53.0) Mean Corpuscular Volume 79 fL (79-100) Mean Corpuscular Hemoglobin 25 pg (25-35) Mean Corpuscular Hemoglobin Concent 31 g/dL (31-37) Red Cell Distribution Width 18.1 % (11.5-14.5) Platelet Count 138 x10^3/uL (140-400) Neutrophils (%) (Auto) 67 % (31-73) Lymphocytes (%) (Auto) 23 % (24-48) Monocytes (%) (Auto) 8 % (0-9) Eosinophils (%) (Auto) 1 % (0-3) Basophils (%) (Auto) 1 % (0-3) Neutrophils # (Auto) 3.4 x10^3/uL (1.8-7.7) Lymphocytes # (Auto) 1.2 x10^3/uL (1.0-4.8) Monocytes # (Auto) 0.4 x10^3/uL (0.0-1.1) Eosinophils # (Auto) 0.0 x10^3/uL (0.0-0.7) Basophils # (Auto) 0.0 x10^3/uL (0.0-0.2) Sodium Level 139 mmol/L (136-145) Potassium Level 3.2 mmol/L (3.5-5.1) Chloride Level 103 mmol/L (98-107) Carbon Dioxide Level 24 mmol/L (21-32) Anion Gap 12 (6-14) Blood Urea Nitrogen 40 mg/dL (8-26) Creatinine 2.0 mg/dL (0.7-1.3) Estimated GFR (Cockcroft-Gault) 31.8 Glucose Level 109 mg/dL (70-99) Calcium Level 8.5 mg/dL (8.5-10.1) Magnesium Level 2.1 mg/dL (1.8-2.4) Iron Level 14 ug/dL (65-175) Total Iron Binding Capacity 300 ug/dL (250-450) Iron Saturation 5 % (15-34) Images Images PATIENT: THOMAS JACKSON ACCOUNT: [id number] : 12/26/1934 LOCATION: ER AGE: 86 SEX: M EXAM STATUS: REG ER ORD. PHYSICIAN: MARLY SEALS APRN REASON: Short of breath PROCEDURE: CHEST AP ONLY AP chest. HISTORY: Short of breath AP view was taken of the chest. Heart is normal in size. There are stimulating leads in the thoracic spinal canal. There is linear scarring or atelectasis in the lung bases. There are no other infiltrates. There is no effusion. 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 IMPRESSION: 1. There is mild linear basilar scarring or atelectasis without other i nfiltrates. VTE Prophylaxis Ordered VTE Prophylaxis Devices: Yes VTE Pharmacological Prophylaxi: No Assessment/Plan Assessment/Plan Blood loss anemia Suspect upper GI bleed CHF CKD BPH Atrial fibrillation Plan: Transfuse PRBC; patient has received 3 units thus far, and will continue to monitor. Consult placed to GI. I imagine patient will have upper endoscopy tomorrow or the next day. We will hold his blood thinner, Eliquis, until source of bleeding found. Resume home medications FEN - clear liquid diet, but likely n.p.o. after midnight PPX - SCD DNR/patient's daughter (Denise Crisostomo) is surrogate decision-maker) Dispo - inpatient for above Justifications for Admission Other Justification RAUL GUERRIER MD Oct 29, 2021 11:16
[2021-10-29] MEDS ORDERED: MIRA25TA PO (11:31)
[2021-10-29] MEDS ORDERED: POTA20TA4 PO (11:31)
[2021-10-29] MEDS ORDERED: ATOR40TA59 PO (11:31)
[2021-10-29] MEDS ORDERED: POLY17PO29 PO (11:34)
[2021-10-29] MEDS ORDERED: CYAN500T7 PO (11:35)
[2021-10-29] MEDS ORDERED: MAG HYDROX/ALUMINUM HYD/SIMETH 30 ML ORAL.SUSP PO PRN (11:45)
[2021-10-29] MEDS ORDERED: ONDANSETRON PF 4 MG/2 ML VIAL. IVP PRN (11:45)
[2021-10-29] MEDS ORDERED: MAGNESIUM HYDROXIDE 2,400 MG/30 ML ORAL.SUSP. PO PRN (11:45)
[2021-10-29] MEDS ORDERED: 0.9 % SODIUM CHLORIDE 10 ML DISP.SYRIN. IV PRN (11:45)
[2021-10-29] MEDS ORDERED: ZOLPIDEM 5 MG TABLET. PO PRN (11:45)
[2021-10-29] MEDS ORDERED: ALBUMIN HUMAN 5% 250 ML IV ONE (11:45)
[2021-10-29] MEDS ORDERED: HYDROcodone/APAP 5/325MG 1 TAB TABLET PO PRN (11:45)
[2021-10-29 12:14] LABS: HEMATOCRIT 21.7 % (39.0-53.0)
[2021-10-29] MEDS ORDERED: POLYETHYLENE GLYCOL 3350 17 GM PACKET. PO PRN (12:15)
[2021-10-29 12:21] LABS: HEMOGLOBIN 6.9 g/dL (13.0-17.5)
[2021-10-29] MEDS: ASPIRIN ENTERIC COATED 81 MG TABLET.DR. PO SCH (13:00)
[2021-10-29] MEDS: MIRABEGRON 25 MG TAB.ER.24H PO SCH (15:09)
[2021-10-29] MEDS: FUROSEMIDE 40 MG TABLET. PO SCH (15:10)
[2021-10-29] MEDS: PREGABALIN 50 MG CAPSULE PO SCH ×2 (15:12→20:14)
[2021-10-29] MEDS: CYANOCOBALAMIN (VITAMIN B-12) 1,000 MCG TABLET. PO SCH (15:12)
[2021-10-29] MEDS: traMADol 50 MG TABLET PO PRN (15:13)
[2021-10-29] MEDS: POTASSIUM CHLORIDE 20 MEQ TABLET.ER. PO SCH (15:13)
[2021-10-29] MEDS: TAMSULOSIN 0.4 MG CAP.ER.24H. PO SCH ×2 (15:13→20:13)
[2021-10-29] MEDS: PANTOPRAZOLE IV PUSH 40 MG VIAL. IVP SCH (15:18)
--- NOTE | 2021-10-29 16:27 | NUR ---
SS following for discharge planning. SS reviewed pt chart and discussed with pt RN. Pt is from home with spouse and is currently on room air. GI following. Possible EGD tomorrow. Pt received four units of blood. SS will continue to follow for discharge planning.
[2021-10-29] MEDS: ATORVASTATIN CALCIUM 40 MG TABLET. PO SCH (20:14)
[2021-10-30] VITALS (23 sets, daily range): BP systolic 121–170; BP diastolic 47–87
[2021-10-30 06:37] LABS: HEMATOCRIT 25.1 % (39.0-53.0); RED BLOOD COUNT 3.06 x10^6/uL (4.30-5.70); RED CELL DISTRIBUTION WIDTH 19.1 % (11.5-14.5); WHITE BLOOD COUNT 4.6 x10^3/uL (4.0-11.0)
[2021-10-30 06:55] LABS: CALCIUM 8.5 mg/dL (8.5-10.1); CREATININE 1.9 mg/dL (0.7-1.3); GFR 33.8; POTASSIUM 3.2 mmol/L (3.5-5.1)
[2021-10-30] MEDS ORDERED: IV RINGERS,LACTATED 1000ML 1,000 ML IV SCH (07:00)
[2021-10-30] MEDS: ASPIRIN ENTERIC COATED 81 MG TABLET.DR. PO SCH (07:42)
[2021-10-30] MEDS ORDERED: POTASSIUM CHLORIDE 20 MEQ TABLET.ER. PO ONE (07:45)
[2021-10-30] MEDS: PANTOPRAZOLE IV PUSH 40 MG VIAL. IVP SCH ×2 (07:53→17:16)
[2021-10-30] MEDS: TAMSULOSIN 0.4 MG CAP.ER.24H. PO SCH ×2 (07:54→20:04)
[2021-10-30] MEDS: traMADol 50 MG TABLET PO PRN (07:54)
[2021-10-30] MEDS: MIRABEGRON 25 MG TAB.ER.24H PO SCH (07:55)
[2021-10-30] MEDS: CYANOCOBALAMIN (VITAMIN B-12) 1,000 MCG TABLET. PO SCH (07:56)
[2021-10-30] MEDS: PREGABALIN 50 MG CAPSULE PO SCH ×2 (07:56→20:04)
[2021-10-30] MEDS: ELECTROLYTE (ICU) PROTOCOL. MC SCH (09:00)
--- NOTE | 2021-10-30 11:49 | PDOC ---
[employer] PROGRESS NOTE Date of Service DOS: DATE: 10/30/21 TIME: 11:37 Chief Complaint Chief Complaint Blood loss anemia Suspect upper GI bleed CHF CKD BPH Atrial fibrillation History of Present Illness History of Present Illness 10/30: Patient is afebrile, still pleasantly confused. Renal function is improving. Hemoglobin is 8.0 today, after 4 units PRBC. Melena in his recent bowel movement. Patient appears to be stable, off to EGD today. Urine culture growing KLEBSIELLA OXYTOCA RAOULTELLA. Will initiate Rocephin. Blood cultures growing gram-positive cocci in clusters in 1 of 4 bottles; suspect contaminant. But due to concern for staph species, will place consultation to ID. Critical care time 30 minutes spent reviewing charts, reviewing labs, reviewing imaging, discussing with RN. Vitals/I&O Vitals/I&O: Vital Signs Date Time Temp Pulse Resp B/P (MAP) Pulse Ox O2 Delivery O2 Flow Rate FiO2 10/30/21 10:00 72 17 154/72 (99) 95 Room Air 10/30/21 08:00 98.3 98.3 I & O 10/29/21 10/29/21 10/30/21 15:00 23:00 07:00 Intake Total 400 ml 2098 ml 500 ml Output Total 500 ml 3000 ml 800 ml Balance -100 ml -902 ml -300 ml Physical Exam General: Alert, Cooperative, No acute distress Heart: Regular rate Lungs: Clear Abdomen: Normal bowel sounds Extremities: No clubbing Skin: No rashes Labs Labs: Laboratory Tests Test 10/29/21 12:03 10/30/21 05:50 Hemoglobin 6.9 g/dL (13.0-17.5) 8.0 g/dL (13.0-17.5) Hematocrit 21.7 % (39.0-53.0) 25.1 % (39.0-53.0) Mean Corpuscular Hemoglobin Concent 32 g/dL (31-37) 32 g/dL (31-37) White Blood Count 4.6 x10^3/uL (4.0-11.0) Red Blood Count 3.06 x10^6/uL (4.30-5.70) Mean Corpuscular Volume 82 fL (79-100) Mean Corpuscular Hemoglobin 26 pg (25-35) Red Cell Distribution Width 19.1 % (11.5-14.5) Platelet Count 118 x10^3/uL (140-400) Sodium Level 142 mmol/L (136-145) Potassium Level 3.2 mmol/L (3.5-5.1) Chloride Level 107 mmol/L (98-107) Carbon Dioxide Level 25 mmol/L (21-32) Anion Gap 10 (6-14) Blood Urea Nitrogen 39 mg/dL (8-26) Creatinine 1.9 mg/dL (0.7-1.3) Estimated GFR (Cockcroft-Gault) 33.8 Glucose Level 121 mg/dL (70-99) Calcium Level 8.5 mg/dL (8.5-10.1) Assessment and Plan Assessmemt and Plan Problems Medical Problems: (1) Congestive heart failure Status: Acute (2) GI bleed Status: Acute (3) Lower extremity edema Status: Acute (4) Severe anemia Status: Acute Comment Review of Relevant I have reviewed the following items denise (where applicable) has been applied. Medications: Current Medications Medications (Trade) Dose Ordered Sig/Facundo Route PRN Reason Start Time Stop Time Status Last Admin Dose Admin Pantoprazole Sodium (PROTONIX VIAL for IV PUSH) 40 mg BIDAC IVP 10/29/21 16:30 10/30/21 07:53 Info ([facility]cu Electrolyte Protocol) 1 ea DAILY MC 10/30/21 09:00 10/30/21 09:00 Albumin Human 250 ml @ 62.5 mls/hr 1X ONCE IV 10/29/21 11:45 10/29/21 15:44 DC 10/29/21 15:20 Atorvastatin Calcium (Lipitor) 40 mg HS PO 10/29/21 21:00 10/29/21 20:14 Furosemide (Lasix) 80 mg DAILY PO 10/29/21 13:00 10/29/21 15:10 Mirabegron (Myrbetriq) 50 mg DAILY PO 10/29/21 13:00 10/30/21 07:55 Potassium Chloride (Klor-Con) 20 meq DAILY PO 10/29/21 13:00 10/29/21 15:13 Tamsulosin HCl (Flomax) 0.4 mg BID PO 10/29/21 13:00 10/30/21 07:54 Tramadol HCl (Ultram) 100 mg PRN Q6HRS PRN PO MILD TO MODERATE PAIN 10/29/21 12:15 10/30/21 07:54 Cyanocobalamin (Vitamin B-12) 500 mcg DAILY PO 10/29/21 13:00 10/30/21 07:56 Pregabalin (Lyrica) 200 mg BID PO 10/29/21 13:00 10/30/21 07:56 Potassium Chloride (Klor-Con) 40 meq 1X ONCE PO 10/30/21 07:45 10/30/21 07:46 DC 10/30/21 07:45 Justifications for Admission Other Justification RAUL GUERRIER MD Oct 30, 2021 11:49
[2021-10-30] MEDS: cefTRIAXone IV Push 1 GM VIAL. IVP SCH (12:17)
--- NOTE | 2021-10-30 14:01 | PDOC4 ---
PROCEDURE Procedure EGD GI bleeding, anemia Anesthesia - propofol E- normal G-normal D- normal up through the third portion No source for bleeding seen. Continue to monitor after transfusion. Consider further work-up later when more stable. This would include colonoscopy and PillCam TRESA SEXTON MD Oct 30, 2021 14:01
[2021-10-30] MEDS ORDERED: PROPOFOL 10 MG/ML (20ML) VIAL. IV ONE (14:09)
[2021-10-30] MEDS ORDERED: HEPARIN for NUC MED 500 UNIT/5 ML DISP.SYRIN. IV ONE ×2 (14:26→14:30)
[2021-10-30] MEDS: FUROSEMIDE 40 MG TABLET. PO SCH (17:16)
[2021-10-30] MEDS: POTASSIUM CHLORIDE 20 MEQ TABLET.ER. PO SCH (17:16)
--- NOTE | 2021-10-30 17:45 | RAD ---
PROCEDURE: GI bleeding nuclear scan Technique: After the intravenous administration of 23 mCi of technetium 99m tagged red blood cells in travenously, images are obtained over the abdomen and pelvis for 1 hour. Indication: GI bleeding. 86 years Male Reason: melena, anemia- negative EGD FINDINGS: There is physiologic blood pool activity with vascular, liver, spleen and bladder activity seen. There is a faint increased radiotracer uptake is seen in the right flank that does not propagat e taking the shape of a bowel loop on this study. There is activity in the perineum likely related to the genitalia. There is no radiotracer activity seen with appropriate change in shape and movement to suggest GI ble eding IMPRESSION: Indeterminate faint activity in the right flank could be artifactual or might indicate a minimal bleed possibly in the cecum. Electronically signed by: Lan Lujan MD (10/30/2021 5:42 PM) [id number]
[2021-10-30 19:41] LABS: HEMATOCRIT 23.9 % (39.0-53.0); HEMOGLOBIN 7.6 g/dL (13.0-17.5); RED BLOOD COUNT 2.92 x10^6/uL (4.30-5.70); RED CELL DISTRIBUTION WIDTH 19.5 % (11.5-14.5); WHITE BLOOD COUNT 5.4 x10^3/uL (4.0-11.0)
[2021-10-30] MEDS: ATORVASTATIN CALCIUM 40 MG TABLET. PO SCH (20:04)
[2021-10-31] VITALS (31 sets, daily range): BP systolic 100–162; BP diastolic 40–65
[2021-10-31 05:28] LABS: CREATININE 1.8 mg/dL (0.7-1.3)
[2021-10-31 05:48] LABS: POTASSIUM 2.7 mmol/L (3.5-5.1)
[2021-10-31] MEDS ORDERED: POTASSIUM CHLORIDE 20 MEQ TABLET.ER. PO ONE (06:15)
[2021-10-31 06:43] LABS: BASO % 1 % (0-3); EOS % 1 % (0-3); HEMATOCRIT 21.5 % (39.0-53.0); LYMPH # 0.5 x10^3/uL (1.0-4.8); LYMPH % 9 % (24-48); MEAN CORPUSCULAR HEMOGLOBIN 26 pg (25-35); MEAN CORPUSCULAR HGB CONC 32 g/dL (31-37); MEAN CORPUSCULAR VOLUME 81 fL (79-100); MONO # 0.4 x10^3/uL (0.0-1.1); MONO % 8 % (0-9); NEUT # 4.3 x10^3/uL (1.8-7.7); NEUT % 81 % (31-73); PLATELET COUNT 109 x10^3/uL (140-400); RED BLOOD COUNT 2.65 x10^6/uL (4.30-5.70); RED CELL DISTRIBUTION WIDTH 19.5 % (11.5-14.5); WHITE BLOOD COUNT 5.2 x10^3/uL (4.0-11.0)
[2021-10-31 06:47] LABS: HEMOGLOBIN 6.9 g/dL (13.0-17.5)
[2021-10-31] MEDS: POTASSIUM CHLORIDE 10MEQ 100 ML IV SCH ×4 (07:12→13:24)
--- NOTE | 2021-10-31 07:45 | NUR ---
end of shift / critical value note Dr. Slaughter paged this morning at 600 and alerted of patient critical potassium of 2.7. Telephone orders given and read back verified for replacement potassium and to check a magnesium level. Orders initiated. Dr. Mckenzie paged at 648 and informed of patient critical hgb of 6.9. Telephone orders given and read back verified for one unit of prbc. Orders initiated. One time during shift, patient woke up and stated to RN he would like to go home and began to take monitors off. Education provided to patient on reasons he was in the hospital. Patient agreeable to stay.
[2021-10-31] MEDS: PANTOPRAZOLE IV PUSH 40 MG VIAL. IVP SCH ×2 (08:41→17:50)
[2021-10-31] MEDS: MIRABEGRON 25 MG TAB.ER.24H PO SCH (08:41)
[2021-10-31] MEDS: CYANOCOBALAMIN (VITAMIN B-12) 1,000 MCG TABLET. PO SCH (08:42)
[2021-10-31] MEDS: POTASSIUM CHLORIDE 20 MEQ TABLET.ER. PO SCH (08:42)
[2021-10-31] MEDS: TAMSULOSIN 0.4 MG CAP.ER.24H. PO SCH ×2 (08:42→20:53)
[2021-10-31] MEDS: FUROSEMIDE 40 MG TABLET. PO SCH (08:43)
[2021-10-31] MEDS: PREGABALIN 50 MG CAPSULE PO SCH ×2 (08:47→20:53)
[2021-10-31] MEDS: ELECTROLYTE (ICU) PROTOCOL. MC SCH (08:50)
[2021-10-31] MEDS: ASPIRIN ENTERIC COATED 81 MG TABLET.DR. PO SCH (09:00)
[2021-10-31] MEDS: cefTRIAXone IV Push 1 GM VIAL. IVP SCH (13:24)
--- NOTE | 2021-10-31 14:20 | PDOC ---
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 Labs Lab Laboratory Tests Test 10/30/21 19:25 10/31/21 04:30 White Blood Count 5.4 x10^3/uL (4.0-11.0) 5.2 x10^3/uL (4.0-11.0) Red Blood Count 2.92 x10^6/uL (4.30-5.70) 2.65 x10^6/uL (4.30-5.70) Hemoglobin 7.6 g/dL (13.0-17.5) 6.9 g/dL (13.0-17.5) Hematocrit 23.9 % (39.0-53.0) 21.5 % (39.0-53.0) Mean Corpuscular Volume 82 fL (79-100) 81 fL (79-100) Mean Corpuscular Hemoglobin 26 pg (25-35) 26 pg (25-35) Mean Corpuscular Hemoglobin Concent 32 g/dL (31-37) 32 g/dL (31-37) Red Cell Distribution Width 19.5 % (11.5-14.5) 19.5 % (11.5-14.5) Platelet Count 115 x10^3/uL (140-400) 109 x10^3/uL (140-400) Neutrophils (%) (Auto) 81 % (31-73) Lymphocytes (%) (Auto) 9 % (24-48) Monocytes (%) (Auto) 8 % (0-9) Eosinophils (%) (Auto) 1 % (0-3) Basophils (%) (Auto) 1 % (0-3) Neutrophils # (Auto) 4.3 x10^3/uL (1.8-7.7) Lymphocytes # (Auto) 0.5 x10^3/uL (1.0-4.8) Monocytes # (Auto) 0.4 x10^3/uL (0.0-1.1) Eosinophils # (Auto) 0.0 x10^3/uL (0.0-0.7) Basophils # (Auto) 0.0 x10^3/uL (0.0-0.2) Sodium Level 139 mmol/L (136-145) Potassium Level 2.7 mmol/L (3.5-5.1) Chloride Level 103 mmol/L (98-107) Carbon Dioxide Level 25 mmol/L (21-32) Anion Gap 11 (6-14) Blood Urea Nitrogen 33 mg/dL (8-26) Creatinine 1.8 mg/dL (0.7-1.3) Estimated GFR (Cockcroft-Gault) 36.0 Glucose Level 168 mg/dL (70-99) Calcium Level 8.0 mg/dL (8.5-10.1) Magnesium Level 1.6 mg/dL (1.8-2.4) Micro Microbiology 10/29/21 Urine Culture - Final, Complete Klebsiella Oxytoca Raoultella 10/28/21 Blood Culture - Preliminary, Resulted NO GROWTH AFTER 2 DAYS Objective Assessment UTI with Klebsiella Blood culture positive with multiple different species of coag negative staph likely contaminant GI bleed Severe anemia Plan Plan of Care Continue Rocephin Continue supportive care 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
--- NOTE | 2021-10-31 14:26 | PDOC ---
[facility] [facility] PROGRESS NOTE Date of Service DOS: DATE: 10/31/21 TIME: 14:23 Chief Complaint Chief Complaint Blood loss anemia Suspect upper GI bleed CHF CKD BPH Atrial fibrillation History of Present Illness History of Present Illness 10/30: Patient is afebrile, still pleasantly confused. Renal function is improving. Hemoglobin is 8.0 today, after 4 units PRBC. Melena in his recent bowel movement. Patient appears to be stable, off to EGD today. Urine culture growing KLEBSIELLA OXYTOCA RAOULTELLA. Will initiate Rocephin. Blood cultures growing gram-positive cocci in clusters in 1 of 4 bottles; suspect contaminant. But due to concern for staph species, will place consultation to ID. Critical care time 30 minutes spent reviewing charts, reviewing labs, reviewing imaging, discussing with RN. 10/31: Patient seen and evaluated ICU with family at bedside. Hemoglobin 6.9 tod ay, currently receiving transfusion. Potassium 2.7. Will increase scheduled KCl to 40 mEq daily due to persistent hypokalemia. Had EGD yesterday with no significant findings. I believe he is scheduled for colonoscopy and pill endoscopy on Tuesday if more stable. Discussed with patient and family. Discussed with RN. Vitals/I&O Vitals/I&O: Vital Signs Date Time Temp Pulse Resp B/P (MAP) Pulse Ox O2 Delivery O2 Flow Rate FiO2 10/31/21 14:00 60 16 155/53 (87) 97 Room Air 10/31/21 13:45 98.5 98.5 10/30/21 14:10 4.0 I & O 10/30/21 10/30/21 10/31/21 15:00 23:00 07:00 Intake Total 700 ml 1200 ml 980 ml Output Total 500 ml 1975 ml 1675 ml Balance 200 ml -775 ml -695 ml Physical Exam General: Alert, Cooperative, No acute distress Heart: Regular rate Lungs: Clear Abdomen: Normal bowel sounds Extremities: No clubbing Skin: No rashes Labs Labs: Laboratory Tests Test 10/30/21 19:25 10/31/21 04:30 White Blood Count 5.4 x10^3/uL (4.0-11.0) 5.2 x10^3/uL (4.0-11.0) Red Blood Count 2.92 x10^6/uL (4.30-5.70) 2.65 x10^6/uL (4.30-5.70) Hemoglobin 7.6 g/dL (13.0-17.5) 6.9 g/dL (13.0-17.5) Hematocrit 23.9 % (39.0-53.0) 21.5 % (39.0-53.0) Mean Corpuscular Volume 82 fL (79-100) 81 fL (79-100) Mean Corpuscular Hemoglobin 26 pg (25-35) 26 pg (25-35) Mean Corpuscular Hemoglobin Concent 32 g/dL (31-37) 32 g/dL (31-37) Red Cell Distribution Width 19.5 % (11.5-14.5) 19.5 % (11.5-14.5) Platelet Count 115 x10^3/uL (140-400) 109 x10^3/uL (140-400) Neutrophils (%) (Auto) 81 % (31-73) Lymphocytes (%) (Auto) 9 % (24-48) Monocytes (%) (Auto) 8 % (0-9) Eosinophils (%) (Auto) 1 % (0-3) Basophils (%) (Auto) 1 % (0-3) Neutrophils # (Auto) 4.3 x10^3/uL (1.8-7.7) Lymphocytes # (Auto) 0.5 x10^3/uL (1.0-4.8) Monocytes # (Auto) 0.4 x10^3/uL (0.0-1.1) Eosinophils # (Auto) 0.0 x10^3/uL (0.0-0.7) Basophils # (Auto) 0.0 x10^3/uL (0.0-0.2) Sodium Level 139 mmol/L (136-145) Potassium Level 2.7 mmol/L (3.5-5.1) Chloride Level 103 mmol/L (98-107) Carbon Dioxide Level 25 mmol/L (21-32) Anion Gap 11 (6-14) Blood Urea Nitrogen 33 mg/dL (8-26) Creatinine 1.8 mg/dL (0.7-1.3) Estimated GFR (Cockcroft-Gault) 36.0 Glucose Level 168 mg/dL (70-99) Calcium Level 8.0 mg/dL (8.5-10.1) Magnesium Level 1.6 mg/dL (1.8-2.4) Assessment and Plan Assessmemt and Plan Problems Medical Problems: (1) Congestive heart failure Status: Acute (2) GI bleed Status: Acute (3) Lower extremity edema Status: Acute (4) Severe anemia Status: Acute Comment Review of Relevant I have reviewed the following items denise (where applicable) has been applied. Medications: Current Medications Medications (Trade) Dose Ordered Sig/Facundo Route PRN Reason Start Time Stop Time Status Last Admin Dose Admin Potassium Chloride (Klor-Con) 20 meq 1X ONCE PO 10/31/21 06:15 10/31/21 06:17 DC 10/31/21 07:12 Potassium Chloride/Water 100 ml @ 100 mls/hr Q1H IV 10/31/21 06:30 10/31/21 10:31 DC 10/31/21 13:24 Justifications for Admission Other Justification RAUL GUERRIER MD Oct 31, 2021 14:25
--- NOTE | 2021-10-31 14:46 | PDOC ---
Date of Service: DATE: 10/31/21 TIME: 14:36 Subjective: Subjective: EGD negative. Hgb down to 6.9. Bleeding scan with no clear source of GIB with ? minimal cecal bleed Objective: Vital Signs: Vital Signs Date Time Temp Pulse Resp B/P (MAP) Pulse Ox O2 Delivery O2 Flow Rate FiO2 10/31/21 14:00 60 16 155/53 (87) 97 Room Air 10/31/21 13:45 98.5 98.5 10/30/21 14:10 4.0 Labs: Laboratory Tests Test 10/30/21 19:25 10/31/21 04:30 White Blood Count 5.4 x10^3/uL (4.0-11.0) 5.2 x10^3/uL (4.0-11.0) Red Blood Count 2.92 x10^6/uL (4.30-5.70) 2.65 x10^6/uL (4.30-5.70) Hemoglobin 7.6 g/dL (13.0-17.5) 6.9 g/dL (13.0-17.5) Hematocrit 23.9 % (39.0-53.0) 21.5 % (39.0-53.0) Mean Corpuscular Volume 82 fL (79-100) 81 fL (79-100) Mean Corpuscular Hemoglobin 26 pg (25-35) 26 pg (25-35) Mean Corpuscular Hemoglobin Concent 32 g/dL (31-37) 32 g/dL (31-37) Red Cell Distribution Width 19.5 % (11.5-14.5) 19.5 % (11.5-14.5) Platelet Count 115 x10^3/uL (140-400) 109 x10^3/uL (140-400) Neutrophils (%) (Auto) 81 % (31-73) Lymphocytes (%) (Auto) 9 % (24-48) Monocytes (%) (Auto) 8 % (0-9) Eosinophils (%) (Auto) 1 % (0-3) Basophils (%) (Auto) 1 % (0-3) Neutrophils # (Auto) 4.3 x10^3/uL (1.8-7.7) Lymphocytes # (Auto) 0.5 x10^3/uL (1.0-4.8) Monocytes # (Auto) 0.4 x10^3/uL (0.0-1.1) Eosinophils # (Auto) 0.0 x10^3/uL (0.0-0.7) Basophils # (Auto) 0.0 x10^3/uL (0.0-0.2) Sodium Level 139 mmol/L (136-145) Potassium Level 2.7 mmol/L (3.5-5.1) Chloride Level 103 mmol/L (98-107) Carbon Dioxide Level 25 mmol/L (21-32) Anion Gap 11 (6-14) Blood Urea Nitrogen 33 mg/dL (8-26) Creatinine 1.8 mg/dL (0.7-1.3) Estimated GFR (Cockcroft-Gault) 36.0 Glucose Level 168 mg/dL (70-99) Calcium Level 8.0 mg/dL (8.5-10.1) Magnesium Level 1.6 mg/dL (1.8-2.4) Physical Exam: Physical Exam: GEN: NAD HEENT: Atraumatic, PERRL LUNGS: clear anteriorly, room air HEART: irregular ABD: NABS, S/ND/NT EXTREMITY: BLE pitting edema SKIN: No rashes, no jaundice NEURO/PSYCH: A & O 3, memory loss Assessment & Plan: Assessment : Shortness of breath, BLE edema, fatigue Microcytic anemia, +Hemoccult H/o GERD CRC screen, h/o adenomatous polyps - colonoscopy in 2008 Diverticulosis, hemorrhoids S/p cholecystectomy H/o fatty liver H/o A Fib, CAD, and CKD on Eliquis and ASA - elevated troponin and BNP ?UTI Rapid COVID negative Plan: 1) Anemia: Pt receiving PRBCs ordered this am. Will follow Hgb after transfusion. Long discussion with and daughter regarding colonoscopy. They declines at this time and request capsule endoscopy. I have explained that [facility] does not have this study, and the patient would need to come to my office as an outpatient to pursue this. They would like to folllow his labs today and reassess tomorrow. Continue Clear Liquid diet. Monitor Hgb. Justicifation of Admission Dx: Justifications for Admission: Justification of Admission Dx: N/A RONNY ESPINOZA MD Oct 31, 2021 14:46
[2021-10-31 17:04] LABS: BASO % 1 % (0-3); EOS # 0.1 x10^3/uL (0.0-0.7); EOS % 1 % (0-3); HEMATOCRIT 25.6 % (39.0-53.0); HEMOGLOBIN 8.5 g/dL (13.0-17.5); LYMPH # 0.7 x10^3/uL (1.0-4.8); LYMPH % 13 % (24-48); MEAN CORPUSCULAR HEMOGLOBIN 27 pg (25-35); MEAN CORPUSCULAR HGB CONC 33 g/dL (31-37); MEAN CORPUSCULAR VOLUME 81 fL (79-100); MONO # 0.5 x10^3/uL (0.0-1.1); MONO % 10 % (0-9); NEUT % 75 % (31-73); PLATELET COUNT 111 x10^3/uL (140-400); RED BLOOD COUNT 3.18 x10^6/uL (4.30-5.70); RED CELL DISTRIBUTION WIDTH 19.7 % (11.5-14.5); WHITE BLOOD COUNT 5.4 x10^3/uL (4.0-11.0)
--- NOTE | 2021-10-31 20:47 | NUR ---
Dr. Souza paged and alerted of patient fever of 101 axillary and 99.9 oral, chills, and body shivers. no previous fevers or chills. RN suggested possible transfusion reaction from blood given earlier in day. Patient denied itchy, difficulty breathing. Patient also denied any frequent alcohol use. Orders given for tylenol and to repage provider if patient continues to be febrile.
[2021-10-31] MEDS: ATORVASTATIN CALCIUM 40 MG TABLET. PO SCH (20:53)
[2021-10-31] MEDS: ACETAMINOPHEN 325 MG TABLET. PO PRN (20:54)
--- NOTE | 2021-10-31 21:29 | EKG ---
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
[2021-11-01] VITALS (24 sets, daily range): BP systolic 105–157; BP diastolic 40–58
[2021-11-01 05:25] LABS: ALBUMIN/GLOBULIN RATIO 0.7 (1.0-1.7); CALCIUM 8.2 mg/dL (8.5-10.1); CREATININE 1.7 mg/dL (0.7-1.3); GFR 38.4; POTASSIUM 3.1 mmol/L (3.5-5.1); TOTAL PROTEIN 4.9 g/dL (6.4-8.2)
[2021-11-01 05:43] LABS: HEMOGLOBIN 8.1 g/dL (13.0-17.5); RED BLOOD COUNT 3.04 x10^6/uL (4.30-5.70); RED CELL DISTRIBUTION WIDTH 19.9 % (11.5-14.5); WHITE BLOOD COUNT 5.4 x10^3/uL (4.0-11.0)
--- NOTE | 2021-11-01 06:13 | NUR ---
End of shift note Patient able to answer orientation questions at 1999 and 0400 assessment. However, at 0000 was not able to state where he was at. patient in afib on the monitor. Cooperative with cares. Rates 46-80. Bp as charted. on room air. productive cough. Dr. Souza contacted 1x this shift by this RN (see previous note). After administration of tylenol, patient temp decreased. No need to re notifiy Dr. Souza. Patient complained of mild pain in right arm and right leg. Denied any chest pain, shortness of breath, difficulty breathing, nausea throughout shift. Assessments per chart. Medications per emar. Patient currently in bed with eyes closed. Respirations visualized and patient on continous tele monitoring. Will continue to monitor patient until handing off care to dayshift RN.
[2021-11-01] MEDS ORDERED: MAGNESIUM SULFATE 2GM 50 ML IV ONE (08:00)
[2021-11-01] MEDS: ELECTROLYTE (ICU) PROTOCOL. MC SCH (09:00)
[2021-11-01] MEDS: PREGABALIN 50 MG CAPSULE PO SCH ×2 (09:12→20:55)
[2021-11-01] MEDS: MIRABEGRON 25 MG TAB.ER.24H PO SCH (09:12)
[2021-11-01] MEDS: ASPIRIN ENTERIC COATED 81 MG TABLET.DR. PO SCH (09:12)
[2021-11-01] MEDS: TAMSULOSIN 0.4 MG CAP.ER.24H. PO SCH ×2 (09:13→20:54)
[2021-11-01] MEDS: CYANOCOBALAMIN (VITAMIN B-12) 1,000 MCG TABLET. PO SCH (09:13)
[2021-11-01] MEDS: POTASSIUM CHLORIDE 20 MEQ TABLET.ER. PO SCH (09:13)
[2021-11-01] MEDS: FUROSEMIDE 40 MG TABLET. PO SCH (09:13)
[2021-11-01] MEDS: PANTOPRAZOLE IV PUSH 40 MG VIAL. IVP SCH ×2 (09:14→17:15)
--- NOTE | 2021-11-01 10:34 | PDOC ---
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 Labs Lab Laboratory Tests Test 10/31/21 17:00 11/01/21 04:00 White Blood Count 5.4 x10^3/uL (4.0-11.0) 5.4 x10^3/uL (4.0-11.0) Red Blood Count 3.18 x10^6/uL (4.30-5.70) 3.04 x10^6/uL (4.30-5.70) Hemoglobin 8.5 g/dL (13.0-17.5) 8.1 g/dL (13.0-17.5) Hematocrit 25.6 % (39.0-53.0) 25.0 % (39.0-53.0) Mean Corpuscular Volume 81 fL (79-100) 82 fL (79-100) Mean Corpuscular Hemoglobin 27 pg (25-35) 27 pg (25-35) Mean Corpuscular Hemoglobin Concent 33 g/dL (31-37) 32 g/dL (31-37) Red Cell Distribution Width 19.7 % (11.5-14.5) 19.9 % (11.5-14.5) Platelet Count 111 x10^3/uL (140-400) 102 x10^3/uL (140-400) Neutrophils (%) (Auto) 75 % (31-73) Lymphocytes (%) (Auto) 13 % (24-48) Monocytes (%) (Auto) 10 % (0-9) Eosinophils (%) (Auto) 1 % (0-3) Basophils (%) (Auto) 1 % (0-3) Neutrophils # (Auto) 4.0 x10^3/uL (1.8-7.7) Lymphocytes # (Auto) 0.7 x10^3/uL (1.0-4.8) Monocytes # (Auto) 0.5 x10^3/uL (0.0-1.1) Eosinophils # (Auto) 0.1 x10^3/uL (0.0-0.7) Basophils # (Auto) 0.0 x10^3/uL (0.0-0.2) Sodium Level 139 mmol/L (136-145) Potassium Level 3.1 mmol/L (3.5-5.1) Chloride Level 104 mmol/L (98-107) Carbon Dioxide Level 26 mmol/L (21-32) Anion Gap 9 (6-14) Blood Urea Nitrogen 28 mg/dL (8-26) Creatinine 1.7 mg/dL (0.7-1.3) Estimated GFR (Cockcroft-Gault) 38.4 BUN/Creatinine Ratio 16 (6-20) Glucose Level 131 mg/dL (70-99) Calcium Level 8.2 mg/dL (8.5-10.1) Magnesium Level 1.7 mg/dL (1.8-2.4) Total Bilirubin 1.0 mg/dL (0.2-1.0) Aspartate Amino Transf (AST/SGOT) 11 U/L (15-37) Alanine Aminotransferase (ALT/SGPT) 11 U/L (16-63) Alkaline Phosphatase 47 U/L (46-116) Total Protein 4.9 g/dL (6.4-8.2) Albumin 2.0 g/dL (3.4-5.0) Albumin/Globulin Ratio 0.7 (1.0-1.7) Micro Microbiology 10/29/21 Urine Culture - Final, Complete Klebsiella Oxytoca Raoultella 10/28/21 Blood Culture - Preliminary, Resulted NO GROWTH AFTER 2 DAYS Objective Assessment UTI with Klebsiella Blood culture positive with multiple different species of coag negative staph likely contaminant GI bleed Severe anemia Plan Plan of Care Continue antibiotics Continue supportive care WIL WATSON MD Nov 01, 2021 10:34
--- NOTE | 2021-11-01 11:00 | PDOC ---
[employer] PROGRESS NOTE Date of Service DOS: DATE: 11/01/21 TIME: 10:58 Chief Complaint Chief Complaint Blood loss anemia Suspect upper GI bleed CHF CKD BPH Atrial fibrillation History of Present Illness History of Present Illness 10/30: Patient is afebrile, still pleasantly confused. Renal function is improving. Hemoglobin is 8.0 today, after 4 units PRBC. Melena in his recent bowel movement. Patient appears to be stable, off to EGD today. Urine culture growing KLEBSIELLA OXYTOCA RAOULTELLA. Will initiate Rocephin. Blood cultures growing gram-positive cocci in clusters in 1 of 4 bottles; suspect contaminant. But due to concern for staph species, will place consultation to ID. Critical care time 30 minutes spent reviewing charts, reviewing labs, reviewing imaging, discussing with RN. 10/31: Patient seen and evaluated ICU with family at bedside. Hemoglobin 6.9 tod ay, currently receiving transfusion. Potassium 2.7. Will increase scheduled KCl to 40 mEq daily due to persistent hypokalemia. Had EGD yesterday with no significant findings. I believe he is scheduled for colonoscopy and pill endoscopy on Tuesday if more stable. Discussed with patient and family. Discussed with RN. 11/01: Hemoglobin 8.1 today. He has had 5 units of PRBCs since admission. He has no complaints today. I believe patient's family is agreeable to outpatient capsule study. We will follow labs and reassess. Discussed with RN. Vitals/I&O Vitals/I&O: Vital Signs Date Time Temp Pulse Resp B/P (MAP) Pulse Ox O2 Delivery O2 Flow Rate FiO2 11/01/21 07:00 62 15 117/48 (71) 97 Room Air 11/01/21 04:00 99.0 99.0 I & O 10/31/21 10/31/21 11/01/21 15:00 23:00 07:00 Intake Total 900 ml 1445 ml 500 ml Output Total 1640 ml 1030 ml 520 ml Balance -740 ml 415 ml -20 ml Physical Exam General: Alert, Cooperative, No acute distress Heart: Regular rate Lungs: Clear Abdomen: Normal bowel sounds Extremities: No clubbing Skin: No rashes Labs Labs: Laboratory Tests Test 10/31/21 17:00 11/01/21 04:00 White Blood Count 5.4 x10^3/uL (4.0-11.0) 5.4 x10^3/uL (4.0-11.0) Red Blood Count 3.18 x10^6/uL (4.30-5.70) 3.04 x10^6/uL (4.30-5.70) Hemoglobin 8.5 g/dL (13.0-17.5) 8.1 g/dL (13.0-17.5) Hematocrit 25.6 % (39.0-53.0) 25.0 % (39.0-53.0) Mean Corpuscular Volume 81 fL (79-100) 82 fL (79-100) Mean Corpuscular Hemoglobin 27 pg (25-35) 27 pg (25-35) Mean Corpuscular Hemoglobin Concent 33 g/dL (31-37) 32 g/dL (31-37) Red Cell Distribution Width 19.7 % (11.5-14.5) 19.9 % (11.5-14.5) Platelet Count 111 x10^3/uL (140-400) 102 x10^3/uL (140-400) Neutrophils (%) (Auto) 75 % (31-73) Lymphocytes (%) (Auto) 13 % (24-48) Monocytes (%) (Auto) 10 % (0-9) Eosinophils (%) (Auto) 1 % (0-3) Basophils (%) (Auto) 1 % (0-3) Neutrophils # (Auto) 4.0 x10^3/uL (1.8-7.7) Lymphocytes # (Auto) 0.7 x10^3/uL (1.0-4.8) Monocytes # (Auto) 0.5 x10^3/uL (0.0-1.1) Eosinophils # (Auto) 0.1 x10^3/uL (0.0-0.7) Basophils # (Auto) 0.0 x10^3/uL (0.0-0.2) Sodium Level 139 mmol/L (136-145) Potassium Level 3.1 mmol/L (3.5-5.1) Chloride Level 104 mmol/L (98-107) Carbon Dioxide Level 26 mmol/L (21-32) Anion Gap 9 (6-14) Blood Urea Nitrogen 28 mg/dL (8-26) Creatinine 1.7 mg/dL (0.7-1.3) Estimated GFR (Cockcroft-Gault) 38.4 BUN/Creatinine Ratio 16 (6-20) Glucose Level 131 mg/dL (70-99) Calcium Level 8.2 mg/dL (8.5-10.1) Magnesium Level 1.7 mg/dL (1.8-2.4) Total Bilirubin 1.0 mg/dL (0.2-1.0) Aspartate Amino Transf (AST/SGOT) 11 U/L (15-37) Alanine Aminotransferase (ALT/SGPT) 11 U/L (16-63) Alkaline Phosphatase 47 U/L (46-116) Total Protein 4.9 g/dL (6.4-8.2) Albumin 2.0 g/dL (3.4-5.0) Albumin/Globulin Ratio 0.7 (1.0-1.7) Assessment and Plan Assessmemt and Plan Problems Medical Problems: (1) Congestive heart failure Status: Acute (2) GI bleed Status: Acute (3) Lower extremity edema Status: Acute (4) Severe anemia Status: Acute Comment Review of Relevant I have reviewed the following items denise (where applicable) has been applied. Medications: Current Medications Medications (Trade) Dose Ordered Sig/Facundo Route PRN Reason Start Time Stop Time Status Last Admin Dose Admin Potassium Chloride (Klor-Con) 40 meq DAILY PO 11/01/21 09:00 11/01/21 09:13 Magnesium Sulfate 50 ml @ 25 mls/hr 1X ONCE IV 11/01/21 08:00 11/01/21 09:59 DC 11/01/21 09:14 Justifications for Admission Other Justification RAUL GUERRIER MD Nov 01, 2021 11:00
--- NOTE | 2021-11-01 12:25 | PDOC ---
Date of Service: DATE: 11/01/21 TIME: 12:24 Subjective: Subjective: Hgb 8.1 today. No further bleeding per nurse Objective: Vital Signs: Vital Signs Date Time Temp Pulse Resp B/P (MAP) Pulse Ox O2 Delivery O2 Flow Rate FiO2 11/01/21 11:00 58 23 112/52 (72) 99 Room Air 11/01/21 08:00 98.5 98.5 Labs: Laboratory Tests Test 10/31/21 17:00 11/01/21 04:00 White Blood Count 5.4 x10^3/uL (4.0-11.0) 5.4 x10^3/uL (4.0-11.0) Red Blood Count 3.18 x10^6/uL (4.30-5.70) 3.04 x10^6/uL (4.30-5.70) Hemoglobin 8.5 g/dL (13.0-17.5) 8.1 g/dL (13.0-17.5) Hematocrit 25.6 % (39.0-53.0) 25.0 % (39.0-53.0) Mean Corpuscular Volume 81 fL (79-100) 82 fL (79-100) Mean Corpuscular Hemoglobin 27 pg (25-35) 27 pg (25-35) Mean Corpuscular Hemoglobin Concent 33 g/dL (31-37) 32 g/dL (31-37) Red Cell Distribution Width 19.7 % (11.5-14.5) 19.9 % (11.5-14.5) Platelet Count 111 x10^3/uL (140-400) 102 x10^3/uL (140-400) Neutrophils (%) (Auto) 75 % (31-73) Lymphocytes (%) (Auto) 13 % (24-48) Monocytes (%) (Auto) 10 % (0-9) Eosinophils (%) (Auto) 1 % (0-3) Basophils (%) (Auto) 1 % (0-3) Neutrophils # (Auto) 4.0 x10^3/uL (1.8-7.7) Lymphocytes # (Auto) 0.7 x10^3/uL (1.0-4.8) Monocytes # (Auto) 0.5 x10^3/uL (0.0-1.1) Eosinophils # (Auto) 0.1 x10^3/uL (0.0-0.7) Basophils # (Auto) 0.0 x10^3/uL (0.0-0.2) Sodium Level 139 mmol/L (136-145) Potassium Level 3.1 mmol/L (3.5-5.1) Chloride Level 104 mmol/L (98-107) Carbon Dioxide Level 26 mmol/L (21-32) Anion Gap 9 (6-14) Blood Urea Nitrogen 28 mg/dL (8-26) Creatinine 1.7 mg/dL (0.7-1.3) Estimated GFR (Cockcroft-Gault) 38.4 BUN/Creatinine Ratio 16 (6-20) Glucose Level 131 mg/dL (70-99) Calcium Level 8.2 mg/dL (8.5-10.1) Magnesium Level 1.7 mg/dL (1.8-2.4) Total Bilirubin 1.0 mg/dL (0.2-1.0) Aspartate Amino Transf (AST/SGOT) 11 U/L (15-37) Alanine Aminotransferase (ALT/SGPT) 11 U/L (16-63) Alkaline Phosphatase 47 U/L (46-116) Total Protein 4.9 g/dL (6.4-8.2) Albumin 2.0 g/dL (3.4-5.0) Albumin/Globulin Ratio 0.7 (1.0-1.7) Physical Exam: Physical Exam: Physical Exam: GEN: NAD HEENT: Atraumatic, PERRL LUNGS: clear anteriorly, room air HEART: irregular ABD: NABS, S/ND/NT EXTREMITY: BLE pitting edema SKIN: No rashes, no jaundice NEURO/PSYCH: A & O 3, memory loss Assessment & Plan: Assessment : Shortness of breath, BLE edema, fatigue Microcytic anemia, +Hemoccult H/o GERD CRC screen, h/o adenomatous polyps - colonoscopy in 2008 Diverticulosis, hemorrhoids S/p cholecystectomy H/o fatty liver H/o A Fib, CAD, and CKD on Eliquis and ASA - elevated troponin and BNP ?UTI Rapid COVID negative Plan: 1) Anemia: Hgb stable. No apparent bleeding. Consider CT Angiography if rebleeds and Cr amenable Justicifation of Admission Dx: Justifications for Admission: Justification of Admission Dx: N/A RONNY ESPINOZA MD Nov 01, 2021 12:25
[2021-11-01] MEDS: cefTRIAXone IV Push 1 GM VIAL. IVP SCH (13:30)
--- NOTE | 2021-11-01 15:22 | RAD ---
EXAMINATION: Chest radiograph. VIEWS: Single AP view of the chest COMPARISON: 10/28/2021 INDICATION:86 years, Male, increased coughing. FINDINGS: Stable cardiomediastinal silhouette stimulator leads in the thoracic spinal canal are redemonstrated. Right basilar linear opacity is mildly increased. Right basilar opacity is decreased. Opacity in the right upper lobe favor scarring. No confluent infiltrates. No pleural effusion or pneumothorax. No a cute osseous process. IMPRESSION: Left basilar opacity is mildly increased favoring scarring and/or atelectasis, infiltrate is not enti rely excluded. Decreased right basilar opacity favoring subsegmental atelectasis. Electronically signed by: Freddie Stallworth DO (11/01/2021 3:20 PM) [id number]
[2021-11-01] MEDS: ATORVASTATIN CALCIUM 40 MG TABLET. PO SCH (20:54)
[2021-11-02] VITALS (21 sets, daily range): BP systolic 106–166; BP diastolic 41–92
[2021-11-02 05:04] LABS: BASO % 0 % (0-3); EOS % 1 % (0-3); HEMATOCRIT 22.4 % (39.0-53.0); HEMOGLOBIN 7.2 g/dL (13.0-17.5); LYMPH # 0.6 x10^3/uL (1.0-4.8); LYMPH % 12 % (24-48); MEAN CORPUSCULAR HEMOGLOBIN 26 pg (25-35); MEAN CORPUSCULAR HGB CONC 32 g/dL (31-37); MEAN CORPUSCULAR VOLUME 82 fL (79-100); MONO # 0.6 x10^3/uL (0.0-1.1); MONO % 10 % (0-9); NEUT # 4.1 x10^3/uL (1.8-7.7); NEUT % 77 % (31-73); PLATELET COUNT 103 x10^3/uL (140-400); RED BLOOD COUNT 2.74 x10^6/uL (4.30-5.70); RED CELL DISTRIBUTION WIDTH 20.2 % (11.5-14.5); WHITE BLOOD COUNT 5.4 x10^3/uL (4.0-11.0)
[2021-11-02 05:31] LABS: ALBUMIN 1.8 g/dL (3.4-5.0); ALBUMIN/GLOBULIN RATIO 0.6 (1.0-1.7); CALCIUM 8.1 mg/dL (8.5-10.1); CREATININE 1.7 mg/dL (0.7-1.3); GFR 38.4; POTASSIUM 3.3 mmol/L (3.5-5.1); TOTAL BILIRUBIN 0.7 mg/dL (0.2-1.0); TOTAL PROTEIN 4.7 g/dL (6.4-8.2)
[2021-11-02] MEDS: MIRABEGRON 25 MG TAB.ER.24H PO SCH (09:00)
[2021-11-02] MEDS: ELECTROLYTE (ICU) PROTOCOL. MC SCH (09:00)
[2021-11-02] MEDS: PREGABALIN 50 MG CAPSULE PO SCH ×2 (11:14→21:12)
[2021-11-02] MEDS: CYANOCOBALAMIN (VITAMIN B-12) 1,000 MCG TABLET. PO SCH (11:15)
[2021-11-02] MEDS: ASPIRIN ENTERIC COATED 81 MG TABLET.DR. PO SCH (11:15)
[2021-11-02] MEDS: FUROSEMIDE 40 MG TABLET. PO SCH (11:15)
[2021-11-02] MEDS: POTASSIUM CHLORIDE 20 MEQ TABLET.ER. PO SCH (11:16)
[2021-11-02] MEDS: PANTOPRAZOLE IV PUSH 40 MG VIAL. IVP SCH ×2 (11:16→16:30)
[2021-11-02] MEDS: TAMSULOSIN 0.4 MG CAP.ER.24H. PO SCH ×2 (11:16→21:10)
--- NOTE | 2021-11-02 12:25 | PDOC ---
Date of Service: DATE: 11/02/21 TIME: 12:13 Subjective: Subjective: Pt offers no complaints. present - concerned that he is not getting stronger, Hgb fluctuating, and "we have to do something." Brings up that he was once advised against having more colonoscopies (probably for screening purposes) but surely we must have e ncountered patients like him before. Wants to know what to do - they are frustrated. Says she has the ultimate say but would have to discuss with her daughters. Also wants someone to discuss this with Dr. Marsh - concerned this may have adverse effect on kidneys. Objective: Objective: D/w nurse - no bleeding Sun or today. Daughters were upset - called the office to ask when Dr. Jordan would be here. Reviewed notes from the weekend - Dr. Mckenzie discussed colonoscopy w/ family - they declined but asked about capsule - explained this was not done as inpatient. Vital Signs: Vital Signs Date Time Temp Pulse Resp B/P (MAP) Pulse Ox O2 Delivery O2 Flow Rate FiO2 11/02/21 11:15 94 Room Air 4.0 11/02/21 11:00 68 23 166/56 (92) 11/02/21 07:00 98.2 98.2 Labs: Laboratory Tests Test 11/02/21 04:30 White Blood Count 5.4 x10^3/uL Red Blood Count 2.74 x10^6/uL Hemoglobin 7.2 g/dL Hematocrit 22.4 % Mean Corpuscular Volume 82 fL Mean Corpuscular Hemoglobin 26 pg Mean Corpuscular Hemoglobin Concent 32 g/dL Red Cell Distribution Width 20.2 % Platelet Count 103 x10^3/uL Neutrophils (%) (Auto) 77 % Lymphocytes (%) (Auto) 12 % Monocytes (%) (Auto) 10 % Eosinophils (%) (Auto) 1 % Basophils (%) (Auto) 0 % Neutrophils # (Auto) 4.1 x10^3/uL Lymphocytes # (Auto) 0.6 x10^3/uL Monocytes # (Auto) 0.6 x10^3/uL Eosinophils # (Auto) 0.0 x10^3/uL Basophils # (Auto) 0.0 x10^3/uL Sodium Level 137 mmol/L Potassium Level 3.3 mmol/L Chloride Level 103 mmol/L Carbon Dioxide Level 25 mmol/L Anion Gap 9 Blood Urea Nitrogen 29 mg/dL Creatinine 1.7 mg/dL Estimated GFR (Cockcroft-Gault) 38.4 BUN/Creatinine Ratio 17 Glucose Level 137 mg/dL Calcium Level 8.1 mg/dL Total Bilirubin 0.7 mg/dL Aspartate Amino Transf (AST/SGOT) 7 U/L Alanine Aminotransferase (ALT/SGPT) 9 U/L Alkaline Phosphatase 44 U/L Total Protein 4.7 g/dL Albumin 1.8 g/dL Albumin/Globulin Ratio 0.6 Imaging: Bleed Scan 10/30 IMPRESSION: Indeterminate faint activity in the right flank could be artifactual or might indicate a minimal bleed possibly in the cecum. CXR 11/01 IMPRESSION: Left basilar opacity is mildly increased favoring scarring and/or atelectasis, infiltrate is not entirely excluded. Decreased right basilar opacity favoring subsegmental atelectasis. PE: GEN: NAD LUNGS: CTAB, room air HEART: RRR ABD: S/ND/NT NEURO/PSYCH: A & O 3, forgetful A/P: ?melena/hematochezia - resolving? - EGD unrevealing for UGI source, bleed scan w/ possible activity in cecum vs artifact RICHARD - Hgb fluctuating (7.2 today), last transfusion on 10/31 H/o CAD and A Fib - ASA and Eliquis held CKD - follows w/ Dr. Marsh as outpt UTI, bacteremia - per ID -- Time spent w/ supportive - it seems she is wanting to proceed w/ colonoscopy but would discuss with daughters. We discussed possible colonoscopy risks w/ increased age and other co- morbidities. She asks for renal opinion - consider this. Dr. Jordan will follow-up with them this afternoon. Keep on clear liquids for now. If family wishes to proceed, could possibly have colonoscopy tomorrow af ternoon pending GI lab/anesthesia availability. Justicifation of Admission Dx: Justifications for Admission: Justification of Admission Dx: N/A MORALES HILLS Nov 02, 2021 12:25
[2021-11-02] MEDS: cefTRIAXone IV Push 1 GM VIAL. IVP SCH (13:00)
--- NOTE | 2021-11-02 13:32 | PDOC ---
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 Labs: Lab Laboratory Tests Test 11/02/21 04:30 White Blood Count 5.4 x10^3/uL (4.0-11.0) Red Blood Count 2.74 x10^6/uL (4.30-5.70) Hemoglobin 7.2 g/dL (13.0-17.5) Hematocrit 22.4 % (39.0-53.0) Mean Corpuscular Volume 82 fL (79-100) Mean Corpuscular Hemoglobin 26 pg (25-35) Mean Corpuscular Hemoglobin Concent 32 g/dL (31-37) Red Cell Distribution Width 20.2 % (11.5-14.5) Platelet Count 103 x10^3/uL (140-400) Neutrophils (%) (Auto) 77 % (31-73) Lymphocytes (%) (Auto) 12 % (24-48) Monocytes (%) (Auto) 10 % (0-9) Eosinophils (%) (Auto) 1 % (0-3) Basophils (%) (Auto) 0 % (0-3) Neutrophils # (Auto) 4.1 x10^3/uL (1.8-7.7) Lymphocytes # (Auto) 0.6 x10^3/uL (1.0-4.8) Monocytes # (Auto) 0.6 x10^3/uL (0.0-1.1) Eosinophils # (Auto) 0.0 x10^3/uL (0.0-0.7) Basophils # (Auto) 0.0 x10^3/uL (0.0-0.2) Sodium Level 137 mmol/L (136-145) Potassium Level 3.3 mmol/L (3.5-5.1) Chloride Level 103 mmol/L (98-107) Carbon Dioxide Level 25 mmol/L (21-32) Anion Gap 9 (6-14) Blood Urea Nitrogen 29 mg/dL (8-26) Creatinine 1.7 mg/dL (0.7-1.3) Estimated GFR (Cockcroft-Gault) 38.4 BUN/Creatinine Ratio 17 (6-20) Glucose Level 137 mg/dL (70-99) Calcium Level 8.1 mg/dL (8.5-10.1) Total Bilirubin 0.7 mg/dL (0.2-1.0) Aspartate Amino Transf (AST/SGOT) 7 U/L (15-37) Alanine Aminotransferase (ALT/SGPT) 9 U/L (16-63) Alkaline Phosphatase 44 U/L (46-116) Total Protein 4.7 g/dL (6.4-8.2) Albumin 1.8 g/dL (3.4-5.0) Albumin/Globulin Ratio 0.6 (1.0-1.7) Objective: Assessment: UTI with Klebsiella Blood culture positive with multiple different species of coag negative staph likely contaminant GI bleed Severe anemia status post packed RBC transfusion A fib CAD CKD Plan: Plan of Care Continue ceftriaxone monitor labs and cultures Continue supportive care Discussed with nursing staff Discussed with family at bedside MERLIN WATSON MD Nov 02, 2021 13:32
--- NOTE | 2021-11-02 13:43 | PDOC ---
[employer] PROGRESS NOTE Date of Service DOS: DATE: 11/02/21 TIME: 13:38 Chief Complaint Chief Complaint Blood loss anemia Suspect upper GI bleed CHF CKD BPH Atrial fibrillation Klebsiella UTI Staph epidermidis bacteremia History of Present Illness History of Present Illness 10/30: Patient is afebrile, still pleasantly confused. Renal function is improving. Hemoglobin is 8.0 today, after 4 units PRBC. Melena in his recent bowel movement. Patient appears to be stable, off to EGD today. Urine culture growing KLEBSIELLA OXYTOCA RAOULTELLA. Will initiate Rocephin. Blood cultures growing gram-positive cocci in clusters in 1 of 4 bottles; suspect contaminant. But due to concern for staph species, will place consultation to ID. Critical care time 30 minutes spent reviewing charts, reviewing labs, reviewing imaging, discussing with RN. 10/31: Patient seen and evaluated ICU with family at bedside. Hemoglobin 6.9 today, currently receiving transfusion. Potassium 2.7. Will increase scheduled KCl to 40 mEq daily due to persistent hypokalemia. Had EGD yesterday with no significant findings. I believe he is scheduled for colonoscopy and pill endoscopy on Tuesday if more stable. Discussed with patient and family. Discussed with RN. 11/01: Hemoglobin 8.1 today. He has had 5 units of PRBCs since admission. He has no complaints today. I believe patient's family is agreeable to outpatient capsule study. We will follow labs and reassess. Discussed with RN. 11/02: Patient seen with family at bedside. Again he has no complaints. Hemoglobin 7.2 today, indicative of ongoing bleed. Bleeding scan on 10/30 showed minimal bleed possibly around the cecum. EGD on 10/30 showed no significant findings. Family has not yet made a decision on colonoscopy. Had lengthy discussion with family at bedside about the risks vs. benefits of colonoscopy given his advanced age. Encourage further discussion with our GI doctor. We will continue to monitor hemoglobin. Resume home tramadol 100 mg 4 times daily. 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 General: Alert, Cooperative, No acute distress Heart: Regular rate Lungs: Clear Abdomen: Normal bowel sounds Extremities: No clubbing Skin: No rashes Labs Labs: Laboratory Tests Test 11/02/21 04:30 White Blood Count 5.4 x10^3/uL (4.0-11.0) Red Blood Count 2.74 x10^6/uL (4.30-5.70) Hemoglobin 7.2 g/dL (13.0-17.5) Hematocrit 22.4 % (39.0-53.0) Mean Corpuscular Volume 82 fL (79-100) Mean Corpuscular Hemoglobin 26 pg (25-35) Mean Corpuscular Hemoglobin Concent 32 g/dL (31-37) Red Cell Distribution Width 20.2 % (11.5-14.5) Platelet Count 103 x10^3/uL (140-400) Neutrophils (%) (Auto) 77 % (31-73) Lymphocytes (%) (Auto) 12 % (24-48) Monocytes (%) (Auto) 10 % (0-9) Eosinophils (%) (Auto) 1 % (0-3) Basophils (%) (Auto) 0 % (0-3) Neutrophils # (Auto) 4.1 x10^3/uL (1.8-7.7) Lymphocytes # (Auto) 0.6 x10^3/uL (1.0-4.8) Monocytes # (Auto) 0.6 x10^3/uL (0.0-1.1) Eosinophils # (Auto) 0.0 x10^3/uL (0.0-0.7) Basophils # (Auto) 0.0 x10^3/uL (0.0-0.2) Sodium Level 137 mmol/L (136-145) Potassium Level 3.3 mmol/L (3.5-5.1) Chloride Level 103 mmol/L (98-107) Carbon Dioxide Level 25 mmol/L (21-32) Anion Gap 9 (6-14) Blood Urea Nitrogen 29 mg/dL (8-26) Creatinine 1.7 mg/dL (0.7-1.3) Estimated GFR (Cockcroft-Gault) 38.4 BUN/Creatinine Ratio 17 (6-20) Glucose Level 137 mg/dL (70-99) Calcium Level 8.1 mg/dL (8.5-10.1) Total Bilirubin 0.7 mg/dL (0.2-1.0) Aspartate Amino Transf (AST/SGOT) 7 U/L (15-37) Alanine Aminotransferase (ALT/SGPT) 9 U/L (16-63) Alkaline Phosphatase 44 U/L (46-116) Total Protein 4.7 g/dL (6.4-8.2) Albumin 1.8 g/dL (3.4-5.0) Albumin/Globulin Ratio 0.6 (1.0-1.7) Assessment and Plan Assessmemt and Plan Problems Medical Problems: (1) Congestive heart failure Status: Acute (2) GI bleed Status: Acute (3) Lower extremity edema Status: Acute (4) Severe anemia Status: Acute Comment Review of Relevant I have reviewed the following items denise (where applicable) has been applied. Justifications for Admission Other Justification RAUL GUERRIER MD Nov 02, 2021 13:43
--- NOTE | 2021-11-02 14:45 | CONS ---
DATE OF CONSULTATION: 10/30/2021 REQUESTING PHYSICIAN: Dr. Schmidt. REASON FOR CONSULTATION: Blood culture positive and UTI. HISTORY OF PRESENT ILLNESS: This is an 86-year-old gentleman who came in with shortness of breath and lower extremity swelling. The patient was initially admitted as congestive heart failure, also had anemia, was suspected to have GI bleed. The patient is undergoing workup for that. He also has urinary problem. He cannot empty his bladder and he is supposed to do self-cath, but he has not been doing it. His urinalysis showed too numerous to count wbc's and the urine culture is positive with Klebsiella oxytoca. The patient also has blood culture positive 1/4 gram-positive cocci. The patient is alert, awake, sitting up on a commode. He has no complaints, he says. He feels fine. Denies any nausea, vomiting, diarrhea, chest pain, shortness of breath, abdominal pain, urinary symptoms or bowel symptoms. PAST MEDICAL HISTORY: Positive for benign prostatic hypertrophy. The patient does have urologist and supposed to do self-cath. He does not do. He also has CKD, congestive heart failure, atrial fibrillation, coronary artery disease, diabetes mellitus. SOCIAL HISTORY: Negative for smoking, alcohol or illicit drug use. ALLERGIES: No known drug allergies. CURRENT MEDICATIONS: The patient is on Rocephin. REVIEW OF SYSTEMS: As in HPI. All other systems reviewed are negative. PHYSICAL EXAMINATION: GENERAL: Alert, oriented gentleman, not in distress. VITAL SIGNS: Stable, afebrile. HEENT: NAD. NECK: Supple, no JVP, no lymphadenopathy. LUNGS: Clear. HEART: S1, S2, regular. ABDOMEN: Soft, nontender, no organomegaly. EXTREMITIES: No edema or cyanosis. SKIN: Unremarkable. NEUROLOGIC: The patient is alert, awake, and appropriate. No focal neurologic deficit. LABORATORY DATA: White count is 4.6, hemoglobin 8 after transfusions, it was down to 4.3. BUN and creatinine is 39 and 1.9. Urinalysis showed too numerous to count wbc's. COVID and influenza negative. Culture as I mentioned and the GI bleeding scan just was done, is not reported yet. Chest x-ray: Bibasilar scarring or atelectasis. IMPRESSION: 1. Urinary retention with infection. 2. Blood culture 1/4, gram-positive cocci, most likely to be contaminant. 3. Gastrointestinal bleed. 4. Severe anemia. 5. Acute kidney injury. 6. Coronary artery disease. 7. Congestive heart failure. 8. Atrial fibrillation. RECOMMENDATIONS: Continue Rocephin. Supportive care. We will follow the cultures. Discussed with the patient's daughter at the bedside. Thank you very much, Dr. Schmidt, for giving me opportunity to participate in this patient's care. MAYRA DR: Tono TID: [id number]
[2021-11-02] MEDS ORDERED: POLYETHYLENE GLYCOL 3350 BTL 238 GM POWDER PO ONE (18:00)
[2021-11-02] MEDS: ATORVASTATIN CALCIUM 40 MG TABLET. PO SCH (21:10)
[2021-11-03] VITALS (27 sets, daily range): BP systolic 93–170; BP diastolic 47–72
[2021-11-03 05:18] LABS: HEMATOCRIT 20.4 % (39.0-53.0); RED BLOOD COUNT 2.5 x10^6/uL (4.30-5.70); RED CELL DISTRIBUTION WIDTH 20.6 % (11.5-14.5)
[2021-11-03 05:23] LABS: HEMOGLOBIN 6.6 g/dL (13.0-17.5)
[2021-11-03 05:32] LABS: CALCIUM 8.3 mg/dL (8.5-10.1); CREATININE 1.6 mg/dL (0.7-1.3); GFR 41.2; POTASSIUM 3.5 mmol/L (3.5-5.1)
[2021-11-03] MEDS ORDERED: MAGNESIUM SULFATE 2GM 50 ML IV ONE ×2 (08:00→09:00)
[2021-11-03] MEDS: PREGABALIN 50 MG CAPSULE PO SCH ×2 (09:00→20:36)
[2021-11-03] MEDS: CYANOCOBALAMIN (VITAMIN B-12) 1,000 MCG TABLET. PO SCH (09:00)
[2021-11-03] MEDS: ASPIRIN ENTERIC COATED 81 MG TABLET.DR. PO SCH (09:00)
[2021-11-03] MEDS: POTASSIUM CHLORIDE 20 MEQ TABLET.ER. PO SCH (09:00)
[2021-11-03] MEDS: FUROSEMIDE 40 MG TABLET. PO SCH (09:00)
[2021-11-03] MEDS: MIRABEGRON 25 MG TAB.ER.24H PO SCH (09:00)
[2021-11-03] MEDS: ELECTROLYTE (ICU) PROTOCOL. MC SCH (09:00)
[2021-11-03] MEDS: TAMSULOSIN 0.4 MG CAP.ER.24H. PO SCH ×2 (09:00→20:37)
--- NOTE | 2021-11-03 10:46 | PDOC ---
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 Labs: Lab Laboratory Tests Test 11/03/21 04:50 White Blood Count 5.0 x10^3/uL (4.0-11.0) Red Blood Count 2.50 x10^6/uL (4.30-5.70) Hemoglobin 6.6 g/dL (13.0-17.5) Hematocrit 20.4 % (39.0-53.0) Mean Corpuscular Volume 82 fL (79-100) Mean Corpuscular Hemoglobin 26 pg (25-35) Mean Corpuscular Hemoglobin Concent 32 g/dL (31-37) Red Cell Distribution Width 20.6 % (11.5-14.5) Platelet Count 97 x10^3/uL (140-400) Sodium Level 138 mmol/L (136-145) Potassium Level 3.5 mmol/L (3.5-5.1) Chloride Level 105 mmol/L (98-107) Carbon Dioxide Level 26 mmol/L (21-32) Anion Gap 7 (6-14) Blood Urea Nitrogen 30 mg/dL (8-26) Creatinine 1.6 mg/dL (0.7-1.3) Estimated GFR (Cockcroft-Gault) 41.2 Glucose Level 131 mg/dL (70-99) Calcium Level 8.3 mg/dL (8.5-10.1) Objective: Assessment: UTI with Klebsiella Blood culture positive with multiple different species of coag negative staph likely contaminant GI bleed Severe anemia status post packed RBC transfusion A fib CAD CKD Plan: Plan of Care Continue ceftriaxone Awaiting blood transfusion monitor labs and cultures Continue supportive care Discussed with nursing staff MERLIN WATSON MD Nov 03, 2021 10:46
[2021-11-03] MEDS: PANTOPRAZOLE IV PUSH 40 MG VIAL. IVP SCH ×2 (12:12→16:30)
[2021-11-03] MEDS ORDERED: LIDOCAINE 2% PF 5 ML VIAL. ONE (12:54)
[2021-11-03] MEDS ORDERED: PROPOFOL 10 MG/ML (20ML) VIAL. IV ONE (12:54)
--- NOTE | 2021-11-03 13:03 | PDOC4 ---
PROCEDURE Procedure Colonoscopy Diagnosis: Recurrent GI bleeding and anemia Anesthesia: Propofol Findings: Numerous clots throughout the colon. Numerous large and small diverticuli in the sigmoid and descending colon. Mucosa was otherwise normal without active bleeding source seen. Terminal ileum was evaluated and no blood was present. A 8 cm semisessile polyp was removed by cold snare polypectomy from the cecum. This was not bleeding. 2 x 6 mm semisessile polyps in the sigmoid colon removed by cold snare polypectomy. These were not bleeding. Impression: No active bleeding was seen but clots suggesting recent bleeding and his history along with the findings, suggest a diverticular bleed is the feasible explanation. Fortunately at this point bleeding appears to have stopped. Plan: Close observation but hopeful that the diverticular bleed will resolve on its own. If recurrent brisk bleeding reoccurs - may consider interventional radiology or even emergent surgery although both have significant downside issues. TRESA SEXTON MD Nov 03, 2021 13:03
--- NOTE | 2021-11-03 15:07 | PDOC ---
[employer] PROGRESS NOTE Date of Service DOS: DATE: 11/03/21 TIME: 15:06 Chief Complaint Chief Complaint Blood loss anemia Suspect upper GI bleed CHF CKD BPH Atrial fibrillation Klebsiella UTI Staph epidermidis bacteremia History of Present Illness History of Present Illness 10/30: Patient is afebrile, still pleasantly confused. Renal function is improving. Hemoglobin is 8.0 today, after 4 units PRBC. Melena in his recent bowel movement. Patient appears to be stable, off to EGD today. Urine culture growing KLEBSIELLA OXYTOCA RAOULTELLA. Will initiate Rocephin. Blood cultures growing gram-positive cocci in clusters in 1 of 4 bottles; suspect contaminant. But due to concern for staph species, will place consultation to ID. Critical care time 30 minutes spent reviewing charts, reviewing labs, reviewing imaging, discussing with RN. 10/31: Patient seen and evaluated ICU with family at bedside. Hemoglobin 6.9 today, currently receiving transfusion. Potassium 2.7. Will increase scheduled KCl to 40 mEq daily due to persistent hypokalemia. Had EGD yesterday with no significant findings. I believe he is scheduled for colonoscopy and pill endoscopy on Tuesday if more stable. Discussed with patient and family. Discussed with RN. 11/01: Hemoglobin 8.1 today. He has had 5 units of PRBCs since admission. He has no complaints today. I believe patient's family is agreeable to outpatient capsule study. We will follow labs and reassess. Discussed with RN. 11/02: Patient seen with family at bedside. Again he has no complaints. Hemoglobin 7.2 today, indicative of ongoing bleed. Bleeding scan on 10/30 showed minimal bleed possibly around the cecum. EGD on 10/30 showed no significant findings. Family has not yet made a decision on colonoscopy. Had lengthy discussion with family at bedside about the risks vs. benefits of colonoscopy given his advanced age. Encourage further discussion with our GI doctor. We will continue to monitor hemoglobin. Resume home tramadol 100 mg 4 times daily. 11/03/2021 No acute events overnight. Patient seen examined bedside. Hemoglobin 6.6. Pending 1 unit PRBC transfusion. Creatinine at 1.6. No concerns per nursing. Patient saturating 94% on room air. 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 focal deficit General: Alert, Cooperative, No acute distress Heart: Regular rate Lungs: Clear Abdomen: Normal bowel sounds Extremities: No clubbing Skin: No rashes Labs Labs: Laboratory Tests Test 11/03/21 04:50 White Blood Count 5.0 x10^3/uL (4.0-11.0) Red Blood Count 2.50 x10^6/uL (4.30-5.70) Hemoglobin 6.6 g/dL (13.0-17.5) Hematocrit 20.4 % (39.0-53.0) Mean Corpuscular Volume 82 fL (79-100) Mean Corpuscular Hemoglobin 26 pg (25-35) Mean Corpuscular Hemoglobin Concent 32 g/dL (31-37) Red Cell Distribution Width 20.6 % (11.5-14.5) Platelet Count 97 x10^3/uL (140-400) Sodium Level 138 mmol/L (136-145) Potassium Level 3.5 mmol/L (3.5-5.1) Chloride Level 105 mmol/L (98-107) Carbon Dioxide Level 26 mmol/L (21-32) Anion Gap 7 (6-14) Blood Urea Nitrogen 30 mg/dL (8-26) Creatinine 1.6 mg/dL (0.7-1.3) Estimated GFR (Cockcroft-Gault) 41.2 Glucose Level 131 mg/dL (70-99) Calcium Level 8.3 mg/dL (8.5-10.1) Assessment and Plan Assessmemt and Plan Problems Medical Problems: (1) Congestive heart failure Status: Acute (2) GI bleed Status: Acute (3) Lower extremity edema Status: Acute (4) Severe anemia Status: Acute Comment Review of Relevant I have reviewed the following items denise (where applicable) has been applied. Medications: Current Medications Medications (Trade) Dose Ordered Sig/Facundo Route PRN Reason Start Time Stop Time Status Last Admin Dose Admin Polyethylene Glycol (miraLAX Powder BULK BOTTLE) 238 gm 1X ONCE PO 11/02/21 18:00 11/02/21 18:01 DC 11/02/21 18:00 Magnesium Sulfate 50 ml @ 25 mls/hr 1X ONCE IV 11/03/21 08:00 11/03/21 09:59 DC 11/03/21 12:10 Justifications for Admission Other Justification GIA CHE MD Nov 03, 2021 15:07
[2021-11-03] MEDS: ATORVASTATIN CALCIUM 40 MG TABLET. PO SCH (20:37)
[2021-11-03] MEDS ORDERED: FUROSEMIDE 40 MG/4 ML VIAL. IVP ONE (21:00)
[2021-11-03] MEDS: cefTRIAXone IV Push 1 GM VIAL. IVP SCH (21:15)
[2021-11-04] VITALS (16 sets, daily range): BP systolic 104–173; BP diastolic 42–71
[2021-11-04] MEDS: MIRABEGRON 25 MG TAB.ER.24H PO SCH (08:03)
[2021-11-04] MEDS: ASPIRIN ENTERIC COATED 81 MG TABLET.DR. PO SCH (08:03)
[2021-11-04] MEDS: PANTOPRAZOLE IV PUSH 40 MG VIAL. IVP SCH (08:03)
[2021-11-04] MEDS: PREGABALIN 50 MG CAPSULE PO SCH ×2 (08:04→19:52)
[2021-11-04] MEDS: CYANOCOBALAMIN (VITAMIN B-12) 1,000 MCG TABLET. PO SCH (08:04)
[2021-11-04] MEDS: TAMSULOSIN 0.4 MG CAP.ER.24H. PO SCH ×2 (08:04→19:53)
[2021-11-04] MEDS: POTASSIUM CHLORIDE 20 MEQ TABLET.ER. PO SCH (08:04)
[2021-11-04] MEDS: FUROSEMIDE 40 MG TABLET. PO SCH (08:04)
[2021-11-04 08:25] LABS: BASO % 1 % (0-3); EOS % 0 % (0-3); HEMATOCRIT 23.5 % (39.0-53.0); HEMOGLOBIN 7.7 g/dL (13.0-17.5); LYMPH # 0.3 x10^3/uL (1.0-4.8); LYMPH % 7 % (24-48); MEAN CORPUSCULAR HEMOGLOBIN 27 pg (25-35); MEAN CORPUSCULAR HGB CONC 33 g/dL (31-37); MEAN CORPUSCULAR VOLUME 81 fL (79-100); MONO # 0.4 x10^3/uL (0.0-1.1); MONO % 7 % (0-9); NEUT # 4.5 x10^3/uL (1.8-7.7); NEUT % 85 % (31-73); PLATELET COUNT 98 x10^3/uL (140-400); RED CELL DISTRIBUTION WIDTH 19.4 % (11.5-14.5); WHITE BLOOD COUNT 5.3 x10^3/uL (4.0-11.0)
[2021-11-04 08:33] LABS: CALCIUM 8.7 mg/dL (8.5-10.1); CREATININE 1.5 mg/dL (0.7-1.3); GFR 44.4; POTASSIUM 3.4 mmol/L (3.5-5.1)
[2021-11-04] MEDS: ELECTROLYTE (ICU) PROTOCOL. MC SCH (09:00)
[2021-11-04 10:00] LABS: % BANDS 3 % (0-9); % EOS 1 % (0-5); % LYMPHS 8 % (24-48); % MONOS 4 % (0-10); % SEGS 84 % (35-66); ANISOCYTOSIS SLIGHT; PLT ESTIMATE DECREASED (ADEQUATE)
--- NOTE | 2021-11-04 10:36 | PDOC ---
[facility] [facility] PROGRESS NOTE Date of Service DOS: DATE: 11/04/21 TIME: 10:35 Chief Complaint Chief Complaint Blood loss anemia Suspect upper GI bleed CHF CKD BPH Atrial fibrillation Klebsiella UTI Staph epidermidis bacteremia History of Present Illness History of Present Illness 10/30: Patient is afebrile, still pleasantly confused. Renal function is improving. Hemoglobin is 8.0 today, after 4 units PRBC. Melena in his recent bowel movement. Patient appears to be stable, off to EGD today. Urine culture growing KLEBSIELLA OXYTOCA RAOULTELLA. Will initiate Rocephin. Blood cultures growing gram-positive cocci in clusters in 1 of 4 bottles; suspect contaminant. But due to concern for staph species, will place consultation to ID. Critical care time 30 minutes spent reviewing charts, reviewing labs, reviewing imaging, discussing with RN. 10/31: Patient seen and evaluated ICU with family at bedside. Hemoglobin 6.9 today, currently receiving transfusion. Potassium 2.7. Will increase scheduled KCl to 40 mEq daily due to persistent hypokalemia. Had EGD yesterday with no significant findings. I believe he is scheduled for colonoscopy and pill endoscopy on Tuesday if more stable. Discussed with patient and family. Discussed with RN. 11/01: Hemoglobin 8.1 today. He has had 5 units of PRBCs since admission. He has no complaints today. I believe patient's family is agreeable to outpatient capsule study. We will follow labs and reassess. Discussed with RN. 11/02: Patient seen with family at bedside. Again he has no complaints. Hemoglobin 7.2 today, indicative of ongoing bleed. Bleeding scan on 10/30 showed minimal bleed possibly around the cecum. EGD on 10/30 showed no significant findings. Family has not yet made a decision on colonoscopy. Had lengthy discussion with family at bedside about the risks vs. benefits of colonoscopy given his advanced age. Encourage further discussion with our GI doctor. We will continue to monitor hemoglobin. Resume home tramadol 100 mg 4 times daily. 11/03/2021 No acute events overnight. Patient seen examined bedside. Hemoglobin 6.6. Pending 1 unit PRBC transfusion. Creatinine at 1.6. No concerns per nursing. Patient saturating 94% on room air. 11/04/2021 No acute events overnight. Patient seen and examined bedside. AF and VSS. No more bloody bowel movements. Hemoglobin stable at 7.7. Possible colonoscopy before discharge. Will defer to GI. Patient's chart, labs, images were reviewed and discussed with RN Vitals/I&O Vitals/I&O: Vital Signs Date Time Temp Pulse Resp B/P (MAP) Pulse Ox O2 Delivery O2 Flow Rate FiO2 11/04/21 10:00 73 28 159/62 (94) 96 Room Air 11/04/21 08:00 98.3 98.3 11/03/21 13:45 4.0 I & O 11/03/21 11/03/21 11/04/21 15:00 23:00 07:00 Intake Total 850 ml Output Total 150 ml 1075 ml 400 ml Balance -150 ml -225 ml -400 ml Physical Exam Physical Exam: Vitals are stable HEENT normal Neck supple no lymphadenopathy Lungs clear Heart S1-S2 regular no gallop murmur Abdomen soft nontender no organomegaly Extremities no edema or cyanosis skin examination unremarkable 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 no focal deficit General: Alert, Cooperative, No acute distress Heart: Regular rate Lungs: Clear Abdomen: Normal bowel sounds Extremities: No clubbing Skin: No rashes Labs Labs: Laboratory Tests Test 11/04/21 07:50 White Blood Count 5.3 x10^3/uL (4.0-11.0) Red Blood Count 2.90 x10^6/uL (4.30-5.70) Hemoglobin 7.7 g/dL (13.0-17.5) Hematocrit 23.5 % (39.0-53.0) Mean Corpuscular Volume 81 fL (79-100) Mean Corpuscular Hemoglobin 27 pg (25-35) Mean Corpuscular Hemoglobin Concent 33 g/dL (31-37) Red Cell Distribution Width 19.4 % (11.5-14.5) Platelet Count 98 x10^3/uL (140-400) Neutrophils (%) (Auto) 85 % (31-73) Lymphocytes (%) (Auto) 7 % (24-48) Monocytes (%) (Auto) 7 % (0-9) Eosinophils (%) (Auto) 0 % (0-3) Basophils (%) (Auto) 1 % (0-3) Neutrophils # (Auto) 4.5 x10^3/uL (1.8-7.7) Lymphocytes # (Auto) 0.3 x10^3/uL (1.0-4.8) Monocytes # (Auto) 0.4 x10^3/uL (0.0-1.1) Eosinophils # (Auto) 0.0 x10^3/uL (0.0-0.7) Basophils # (Auto) 0.0 x10^3/uL (0.0-0.2) Segmented Neutrophils % 84 % (35-66) Band Neutrophils % 3 % (0-9) Lymphocytes % 8 % (24-48) Monocytes % 4 % (0-10) Eosinophils % 1 % (0-5) Platelet Estimate Decreased (ADEQUATE) Anisocytosis Slight Sodium Level 139 mmol/L (136-145) Potassium Level 3.4 mmol/L (3.5-5.1) Chloride Level 105 mmol/L (98-107) Carbon Dioxide Level 24 mmol/L (21-32) Anion Gap 10 (6-14) Blood Urea Nitrogen 24 mg/dL (8-26) Creatinine 1.5 mg/dL (0.7-1.3) Estimated GFR (Cockcroft-Gault) 44.4 Glucose Level 123 mg/dL (70-99) Calcium Level 8.7 mg/dL (8.5-10.1) Magnesium Level 2.1 mg/dL (1.8-2.4) Assessment and Plan Assessmemt and Plan Problems Medical Problems: (1) Congestive heart failure Status: Acute (2) GI bleed Status: Acute (3) Lower extremity edema Status: Acute (4) Severe anemia Status: Acute Comment Review of Relevant I have reviewed the following items denise (where applicable) has been applied. Medications: Current Medications Medications (Trade) Dose Ordered Sig/Facundo Route PRN Reason Start Time Stop Time Status Last Admin Dose Admin Furosemide (Lasix) 40 mg 1X ONCE IVP 11/03/21 21:00 11/03/21 21:01 DC 11/03/21 21:16 Justifications for Admission Other Justification GIA CHE MD Nov 04, 2021 10:36
--- NOTE | 2021-11-04 11:26 | PDOC ---
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 Labs Lab Laboratory Tests Test 11/04/21 07:50 White Blood Count 5.3 x10^3/uL (4.0-11.0) Red Blood Count 2.90 x10^6/uL (4.30-5.70) Hemoglobin 7.7 g/dL (13.0-17.5) Hematocrit 23.5 % (39.0-53.0) Mean Corpuscular Volume 81 fL (79-100) Mean Corpuscular Hemoglobin 27 pg (25-35) Mean Corpuscular Hemoglobin Concent 33 g/dL (31-37) Red Cell Distribution Width 19.4 % (11.5-14.5) Platelet Count 98 x10^3/uL (140-400) Neutrophils (%) (Auto) 85 % (31-73) Lymphocytes (%) (Auto) 7 % (24-48) Monocytes (%) (Auto) 7 % (0-9) Eosinophils (%) (Auto) 0 % (0-3) Basophils (%) (Auto) 1 % (0-3) Neutrophils # (Auto) 4.5 x10^3/uL (1.8-7.7) Lymphocytes # (Auto) 0.3 x10^3/uL (1.0-4.8) Monocytes # (Auto) 0.4 x10^3/uL (0.0-1.1) Eosinophils # (Auto) 0.0 x10^3/uL (0.0-0.7) Basophils # (Auto) 0.0 x10^3/uL (0.0-0.2) Segmented Neutrophils % 84 % (35-66) Band Neutrophils % 3 % (0-9) Lymphocytes % 8 % (24-48) Monocytes % 4 % (0-10) Eosinophils % 1 % (0-5) Platelet Estimate Decreased (ADEQUATE) Anisocytosis Slight Sodium Level 139 mmol/L (136-145) Potassium Level 3.4 mmol/L (3.5-5.1) Chloride Level 105 mmol/L (98-107) Carbon Dioxide Level 24 mmol/L (21-32) Anion Gap 10 (6-14) Blood Urea Nitrogen 24 mg/dL (8-26) Creatinine 1.5 mg/dL (0.7-1.3) Estimated GFR (Cockcroft-Gault) 44.4 Glucose Level 123 mg/dL (70-99) Calcium Level 8.7 mg/dL (8.5-10.1) Magnesium Level 2.1 mg/dL (1.8-2.4) Micro Microbiology 10/29/21 Urine Culture - Final, Complete Klebsiella Oxytoca Raoultella 10/28/21 Blood Culture - Preliminary, Resulted NO GROWTH AFTER 2 DAYS Objective Assessment UTI with Klebsiella Blood culture positive with multiple different species of coag negative staph likely contaminant GI bleed Severe anemia Plan Plan of Care Continue ceftriaxone Awaiting blood transfusion monitor labs and cultures Continue supportive care Discussed with nursing staff WIL WATSON MD Nov 04, 2021 11:26
--- NOTE | 2021-11-04 11:42 | PDOC ---
Date of Service: DATE: 11/04/21 TIME: 11:38 Subjective: Subjective: No complaints. Asks when he can go home. Objective: Objective: D/w nurse - plans to transfer out of ICU. Had a smear of maroon stool after breakfast. Zulma still held, was given ASA today. Vital Signs: Vital Signs Date Time Temp Pulse Resp B/P (MAP) Pulse Ox O2 Delivery O2 Flow Rate FiO2 11/04/21 11:00 66 26 167/71 (103) 99 Room Air 11/04/21 08:00 98.3 98.3 11/03/21 13:45 4.0 Labs: Laboratory Tests Test 11/04/21 07:50 White Blood Count 5.3 x10^3/uL Red Blood Count 2.90 x10^6/uL Hemoglobin 7.7 g/dL Hematocrit 23.5 % Mean Corpuscular Volume 81 fL Mean Corpuscular Hemoglobin 27 pg Mean Corpuscular Hemoglobin Concent 33 g/dL Red Cell Distribution Width 19.4 % Platelet Count 98 x10^3/uL Neutrophils (%) (Auto) 85 % Lymphocytes (%) (Auto) 7 % Monocytes (%) (Auto) 7 % Eosinophils (%) (Auto) 0 % Basophils (%) (Auto) 1 % Neutrophils # (Auto) 4.5 x10^3/uL Lymphocytes # (Auto) 0.3 x10^3/uL Monocytes # (Auto) 0.4 x10^3/uL Eosinophils # (Auto) 0.0 x10^3/uL Basophils # (Auto) 0.0 x10^3/uL Segmented Neutrophils % 84 % Band Neutrophils % 3 % Lymphocytes % 8 % Monocytes % 4 % Eosinophils % 1 % Platelet Estimate Decreased Anisocytosis Slight Sodium Level 139 mmol/L Potassium Level 3.4 mmol/L Chloride Level 105 mmol/L Carbon Dioxide Level 24 mmol/L Anion Gap 10 Blood Urea Nitrogen 24 mg/dL Creatinine 1.5 mg/dL Estimated GFR (Cockcroft-Gault) 44.4 Glucose Level 123 mg/dL Calcium Level 8.7 mg/dL Magnesium Level 2.1 mg/dL Imaging: Colonoscopy 11/03/21 Diagnosis: Recurrent GI bleeding and anemia Anesthesia: Propofol Findings: Numerous clots throughout the colon. Numerous large and small diverticuli in the sigmoid and descending colon. Mucosa was otherwise normal without active bleeding source seen. Terminal ileum was evaluated and no blood was present. A 8 cm semisessile polyp was removed by cold snare polypectomy from the cecum. This was not bleeding. 2 x 6 mm semisessile polyps in the sigmoid colon removed by cold snare polypectomy. These were not bleeding. Impression: No active bleeding was seen but clots suggesting recent bleeding and his history along with the findings, suggest a diverticular bleed is the feasible explanation. Fortunately at this point bleeding appears to have stopped. Plan: Close observation but hopeful that the diverticular bleed will resolve on its own. If recurrent brisk bleeding reoccurs - may consider interventional radiology or even emergent surgery although both have significant downside issues. PE: GEN: NAD - alone in room LUNGS: CTAB HEART: RRR ABD: NABS, S/ND/NT NEURO/PSYCH: A & O 3, forgetful A/P: Suspected diverticular bleed - colonoscopy as above RICHARD - improved after transfusion yesterday (Hgb 7.7) H/o CAD and A Fib - Eliquis held, ASA resumed UTI, bacteremia (likely contaminant) - atbx per ID -- Hopefully resolved - okay to transfer out of ICU, monitor labs and for recurrent bleeding. Justicifation of Admission Dx: Justifications for Admission: Justification of Admission Dx: N/A [place] Nov 04, 2021 11:42
[2021-11-04] MEDS ORDERED: POTASSIUM CHLORIDE 20 MEQ TABLET.ER. PO SCH (12:00)
--- NOTE | 2021-11-04 12:01 | NUR ---
Patient transferring upstairs. Patient's pants, shirt, socks, and dentures with patient. Called patient's daughter, Denise, left a message on her phone. Report called to TAMRA Chaney.
[2021-11-04] MEDS ORDERED: POTASSIUM CHLORIDE 20 MEQ TABLET.ER. PO ONE (13:00)
[2021-11-04] MEDS: cefTRIAXone IV Push 1 GM VIAL. IVP SCH (14:16)
[2021-11-04] MEDS ORDERED: IRON SUCROSE COMPLEX 200 MG in IV NORMAL SALINE 100ML 100 ML IV ONE (15:00)
[2021-11-04] MEDS: ATORVASTATIN CALCIUM 40 MG TABLET. PO SCH (19:53)
[2021-11-05 03:16] VITALS: BP 138/54
[2021-11-05 07:00] VITALS: BP 154/71
[2021-11-05 08:16] LABS: HEMATOCRIT 24.4 % (39.0-53.0); HEMOGLOBIN 7.8 g/dL (13.0-17.5)
[2021-11-05] MEDS: PREGABALIN 50 MG CAPSULE PO SCH ×2 (08:39→21:23)
[2021-11-05] MEDS: POTASSIUM CHLORIDE 20 MEQ TABLET.ER. PO SCH (08:39)
[2021-11-05] MEDS: FUROSEMIDE 40 MG TABLET. PO SCH (08:40)
[2021-11-05] MEDS: CYANOCOBALAMIN (VITAMIN B-12) 1,000 MCG TABLET. PO SCH (08:40)
[2021-11-05] MEDS: ASPIRIN ENTERIC COATED 81 MG TABLET.DR. PO SCH (08:41)
[2021-11-05] MEDS: MIRABEGRON 25 MG TAB.ER.24H PO SCH (08:41)
[2021-11-05] MEDS: TAMSULOSIN 0.4 MG CAP.ER.24H. PO SCH ×2 (08:41→21:23)
[2021-11-05] MEDS: PANTOPRAZOLE 40 MG TABLET.DR. PO SCH (08:42)
[2021-11-05] MEDS: ELECTROLYTE (ICU) PROTOCOL. MC SCH (09:00)
--- NOTE | 2021-11-05 10:02 | PDOC ---
[employer] [facility] PROGRESS NOTE Date of Service DOS: DATE: 11/05/21 TIME: 09:54 Chief Complaint Chief Complaint Blood loss anemia Suspect upper GI bleed CHF CKD BPH Atrial fibrillation Klebsiella UTI Staph epidermidis bacteremia History of Present Illness History of Present Illness 11/05/2021 Patient seen and examined exam discussed with RN Chart reviewed Discussed with case management ID and GI are following He has had multiple transfusions Currently on O2 per nasal cannula His nurse states he is coughing up some sun mucus and his sat is 93% Currently getting IV iron Discussed with RN Were hoping to discharge to shelter in the morning 10/30: Patient is afebrile, still pleasantly confused. Renal function is improving. Hemoglobin is 8.0 today, after 4 units PRBC. Melena in his recent bowel movement. Patient appears to be stable, off to EGD today. Urine culture growing KLEBSIELLA OXYTOCA RAOULTELLA. Will initiate Rocephin. Blood cultures growing gram-positive cocci in clusters in 1 of 4 bottles; suspect contaminant. But due to concern for staph species, will place consultation to ID. Critical care time 30 minutes spent reviewing charts, reviewing labs, reviewing imaging, discussing with RN. 10/31: Patient seen and evaluated ICU with family at bedside. Hemoglobin 6.9 today, currently receiving transfusion. Potassium 2.7. Will increase scheduled KCl to 40 mEq daily due to persistent hypokalemia. Had EGD yesterday with no significant findings. I believe he is scheduled for colonoscopy and pill endoscopy on Tuesday if more stable. Discussed with patient and family. Discussed with RN. 11/01: Hemoglobin 8.1 today. He has had 5 units of PRBCs since admission. He has no complaints today. I believe patient's family is agreeable to outpatient capsule study. We will follow labs and reassess. Discussed with RN. 11/02: Patient seen with family at bedside. Again he has no complaints. Hemoglobin 7.2 today, indicative of ongoing bleed. Bleeding scan on 10/30 showed minimal bleed possibly around the cecum. EGD on 10/30 showed no significant findings. Family has not yet made a decision on colonoscopy. Had lengthy discussion with family at bedside about the risks vs. benefits of colonoscopy given his advanced age. Encourage further discussion with our GI doctor. We will continue to monitor hemoglobin. Resume home tramadol 100 mg 4 times daily. 11/03/2021 No acute events overnight. Patient seen examined bedside. Hemoglobin 6.6. Pending 1 unit PRBC transfusion. Creatinine at 1.6. No concerns per nursing. Patient saturating 94% on room air. 11/04/2021 No acute events overnight. Patient seen and examined bedside. AF and VSS. No more bloody bowel movements. Hemoglobin stable at 7.7. Possible colonoscopy before discharge. Will defer to GI. Patient's chart, labs, images were reviewed and discussed with RN Vitals/I&O Vitals/I&O: Vital Signs Date Time Temp Pulse Resp B/P (MAP) Pulse Ox O2 Delivery O2 Flow Rate FiO2 11/05/21 08:00 Room Air 11/05/21 07:00 98.3 70 18 154/71 (98) 97 1.0 98.3 I & O 11/04/21 11/04/21 11/05/21 15:00 23:00 07:00 Intake Total 250 ml Output Total 550 ml 550 ml 850 ml Balance -300 ml -550 ml -850 ml Physical Exam Physical Exam: Vitals are stable HEENT normal Neck supple no lymphadenopathy Lungs clear Heart S1-S2 regular no gallop murmur Abdomen soft nontender no organomegaly Extremities no edema or cyanosis skin examination unremarkable 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 General: Alert, Cooperative, No acute distress Heart: Regular rate Lungs: Clear Abdomen: Normal bowel sounds Extremities: No clubbing Skin: No rashes Labs Labs: Laboratory Tests Test 11/05/21 07:05 Hemoglobin 7.8 g/dL (13.0-17.5) Hematocrit 24.4 % (39.0-53.0) Mean Corpuscular Hemoglobin Concent 32 g/dL (31-37) Assessment and Plan Assessmemt and Plan Problems Medical Problems: (1) Congestive heart failure Status: Acute (2) GI bleed Status: Acute (3) Lower extremity edema Status: Acute (4) Severe anemia Status: Acute Blood loss anemia Hypoxia Suspect upper GI bleed CHF CKD BPH Atrial fibrillation Klebsiella UTI Staph epidermidis bacteremia Plan Abdomen check a chest x-ray We gave him a breathing treatment We are trying to arrange shelter soon For now continue current treatment Trend labs Home meds DVT prophylaxis Full code As needed transfusions Antibiotics Comment Review of Relevant I have reviewed the following items denise (where applicable) has been applied. Medications: Current Medications Medications (Trade) Dose Ordered Sig/Facundo Route PRN Reason Start Time Stop Time Status Last Admin Dose Admin Pantoprazole Sodium (Protonix) 40 mg DAILYAC PO 11/05/21 07:30 11/05/21 08:42 Potassium Chloride (Klor-Con) 40 meq 1X ONCE PO 11/04/21 13:00 11/04/21 13:01 DC 11/04/21 14:15 Iron Sucrose 200 mg/Sodium Chloride 110 ml @ 55 mls/hr 1X ONCE IV 11/04/21 15:00 11/04/21 16:59 DC 11/04/21 14:56 Justifications for Admission Other Justification VIRGINIE MIGUEL III DO Nov 05, 2021 10:02
--- NOTE | 2021-11-05 10:02 | PDOC ---
Date of Service: DATE: 11/05/21 TIME: 09:59 Subjective: Subjective: Right leg pain from knee to foot. Objective: Objective: No bleeding per nurse. Vital Signs: Vital Signs Date Time Temp Pulse Resp B/P (MAP) Pulse Ox O2 Delivery O2 Flow Rate FiO2 11/05/21 08:00 Room Air 11/05/21 07:00 98.3 70 18 154/71 (98) 97 1.0 98.3 Labs: Laboratory Tests Test 11/05/21 07:05 Hemoglobin 7.8 g/dL Hematocrit 24.4 % Mean Corpuscular Hemoglobin Concent 32 g/dL PE: GEN: NAD LUNGS: some wheezing, NC 1L HEART: RRR ABD: S/ND/NT EXTREM: LE pitting edema, some redness RLE NEURO/PSYCH: A & O 3, forgetful A/P: Suspected diverticular bleed - resolving RICHARD - stable, Hgb 7.8 - last pRBC 11/03, also s/p IV iron H/o CAD and A Fib - on ASA but Eliquis held UTI RLE pain - defer to primary -- Consider another unit pRBCs for Hgb >8. Hold Eliquis for a week. Justicifation of Admission Dx: Justifications for Admission: Justification of Admission Dx: N/A [place] Nov 05, 2021 10:02
[2021-11-05] MEDS: ACETAMINOPHEN 325 MG TABLET. PO PRN (10:04)
--- NOTE | 2021-11-05 10:37 | NUR ---
SS following up with discharge planning. SS reviewed pt chart and discussed with pt RN. Pt is currently requiring oxygen at two liters nasal canula. GI and ID following. Pt on IV Rocephin. PT/OT ordered. OT recommended care home unit. COVID19 PCR test pending for placement. PO diet. Pt requesting to go to [facility] in [place], ; fax [phone]. Currently awaiting PT evaluation at this time. SS left message for pt's daughter in regards to discharge planning. SS will continue to follow for discharge planning. Addendum: 11/05/21 at 1452 by FORREST MARINO PT recommended care home unit. Referral phoned and faxed to [facility].
[2021-11-05 10:55] VITALS: BP 150/60
[2021-11-05] MEDS: IPRATRPIUM/ALBUTEROL 0.5/2.5MG 3 ML NEBU. NEB SCH ×3 (11:47→20:18)
--- NOTE | 2021-11-05 13:08 | RAD ---
EXAM: XR CHEST 1V 11/05/2021 11:09 AM CLINICAL INDICATION: Wheezing COMPARISON: Chest radiograph 11/01/2021 TECHNIQUE: AP upright view of the chest FINDINGS: The heart is mildly enlarged. Lungs are adequately expanded. There are mild left basilar o pacities. The right lung is clear. No pleural effusion or pneumothorax. Spinal stimulator projects ov er the thoracic spine. IMPRESSION: Mild left basilar opacities, which could be atelectasis or pneumonia. Electronically signed by: Anabelle Tristan MD (11/05/2021 1:05 PM) [id number]
[2021-11-05] MEDS: cefTRIAXone IV Push 1 GM VIAL. IVP SCH (14:26)
[2021-11-05 15:00] VITALS: BP 135/52
[2021-11-05 15:23] LABS: ALBUMIN 1.7 g/dL (3.4-5.0); ALBUMIN/GLOBULIN RATIO 0.5 (1.0-1.7); CALCIUM 8.5 mg/dL (8.5-10.1); CREATININE 1.5 mg/dL (0.7-1.3); GFR 44.4; POTASSIUM 3.8 mmol/L (3.5-5.1); TOTAL BILIRUBIN 0.4 mg/dL (0.2-1.0); TOTAL PROTEIN 5.2 g/dL (6.4-8.2)
[2021-11-05] MEDS ORDERED: ALBUMIN HUMAN 25% 50 ML IV ONE (16:30)
--- NOTE | 2021-11-05 18:16 | PATHOLOGY ---
[facility] Accession Number: [id number] . 01 Material submitted: . PART A: cecum - CECUM POLYP PART B: sigmoid colon - SIGMOID COLON POLYP . 01 Clinical history: . ANEMIA . 02 Diagnosis: A. Colon biopsies, cecal polyp: - Tubular adenoma. . B. Colon biopsies, sigmoid colon polyps: - Tubular adenomas. ([facility]; 11/05/2021) [facility] 11/05/2021 1217 Local . 02 Comment: There is no high-grade dysplasia or evidence of malignancy. ([facility]; 11/05/2021) . . 02 Electronically signed: . Yoseph Matthews MD, Pathologist NPI- [id number] . 01 Gross description: . A. The specimen is received in formalin, labeled "Aaron, Giovanni, cecum polyp". Received are 3 segments of pale sun tissue ranging in size from 0.3 cm to 0.8 cm in maximum dimensions. The specimen is submitted entirely in cassette A1. . B. The specimen is received in formalin, labeled "Aaron, Giovanni, sigmoid colon polyp". Received are 2 segments of pale sun tissue ranging in size from 0.4 to 0.6 cm in maximum dimensions. The specimen is submitted entirely in cassette B1.([facility]; 11/04/2021) [facility] 11/04/2021 1023 Local . 02 Pathologist provided ICD-10: D12.0, D12.5 . 02 CPT . 572425, 741521 Specimen Comment: A courtesy copy of this report has been sent to [phone] Specimen Comment: [id number] Specimen Comment: Report sent to / DR CHE Specimen Comment: A duplicate report has been generated due to demographic updates. Performed at: 01 [facility] [address], [place], [place] [id number] MD Sharif Reynolds MD Phone: [phone] Performed at: 02 [facility] [address] [place], [place] [id number] MD Yoseph Matthews MD Phone: [phone]
[2021-11-05 19:00] VITALS: BP 168/49
[2021-11-05] MEDS ORDERED: FUROSEMIDE 20 MG/2 ML VIAL. IVP ONE (19:45)
--- NOTE | 2021-11-05 20:24 | PDOC ---
Infectious Disease Note Subjective Subjective Patient feels better ROS ROS no n/v/d/sob Vital Sign Vital Signs Vital Signs Date Time Temp Pulse Resp B/P (MAP) Pulse Ox O2 Delivery O2 Flow Rate FiO2 11/05/21 20:19 98 Room Air 11/05/21 19:00 98.2 68 20 168/49 (88) 98.2 11/05/21 07:00 1.0 Physical Exam PHYSICAL EXAM Vitals are stable HEENT normal Neck supple no lymphadenopathy Lungs clear Heart S1-S2 regular no gallop murmur Abdomen soft nontender no organomegaly Extremities no edema or cyanosis skin examination unremarkable [employer] alert awake no focal deficit Labs Lab Laboratory Tests Test 11/05/21 07:05 Hemoglobin 7.8 g/dL (13.0-17.5) Hematocrit 24.4 % (39.0-53.0) Mean Corpuscular Hemoglobin Concent 32 g/dL (31-37) Sodium Level 142 mmol/L (136-145) Potassium Level 3.8 mmol/L (3.5-5.1) Chloride Level 106 mmol/L (98-107) Carbon Dioxide Level 26 mmol/L (21-32) Anion Gap 10 (6-14) Blood Urea Nitrogen 22 mg/dL (8-26) Creatinine 1.5 mg/dL (0.7-1.3) Estimated GFR (Cockcroft-Gault) 44.4 BUN/Creatinine Ratio 15 (6-20) Glucose Level 118 mg/dL (70-99) Calcium Level 8.5 mg/dL (8.5-10.1) Total Bilirubin 0.4 mg/dL (0.2-1.0) Aspartate Amino Transf (AST/SGOT) 28 U/L (15-37) Alanine Aminotransferase (ALT/SGPT) 30 U/L (16-63) Alkaline Phosphatase 71 U/L (46-116) Total Protein 5.2 g/dL (6.4-8.2) Albumin 1.7 g/dL (3.4-5.0) Albumin/Globulin Ratio 0.5 (1.0-1.7) Micro Microbiology 10/29/21 Urine Culture - Final, Complete Klebsiella Oxytoca Raoultella 10/28/21 Blood Culture - Preliminary, Resulted NO GROWTH AFTER 2 DAYS Objective Assessment UTI with Klebsiella Blood culture positive with multiple different species of coag negative staph likely contaminant GI bleed Severe anemia Plan Plan of Care Continue ceftriaxone Awaiting blood transfusion monitor labs and cultures Continue supportive care Discussed with nursing staff WIL WATSON MD Nov 05, 2021 20:24
[2021-11-05] MEDS: ATORVASTATIN CALCIUM 40 MG TABLET. PO SCH (21:23)
[2021-11-05 23:00] VITALS: BP_SYST 131; BP_SYST 187; BP_DIAS 47; BP_DIAS 70
[2021-11-06 03:40] VITALS: BP 141/54
[2021-11-06 07:00] VITALS: BP 116/53
[2021-11-06] MEDS: IPRATRPIUM/ALBUTEROL 0.5/2.5MG 3 ML NEBU. NEB SCH ×3 (07:31→15:41)
[2021-11-06] MEDS: ELECTROLYTE (ICU) PROTOCOL. MC SCH (08:01)
[2021-11-06] MEDS: TAMSULOSIN 0.4 MG CAP.ER.24H. PO SCH (09:53)
[2021-11-06] MEDS: MIRABEGRON 25 MG TAB.ER.24H PO SCH (09:53)
[2021-11-06] MEDS: PANTOPRAZOLE 40 MG TABLET.DR. PO SCH (09:53)
[2021-11-06] MEDS: CYANOCOBALAMIN (VITAMIN B-12) 1,000 MCG TABLET. PO SCH (09:54)
[2021-11-06] MEDS: FUROSEMIDE 40 MG TABLET. PO SCH (09:54)
[2021-11-06] MEDS: traMADol 50 MG TABLET PO PRN ×2 (09:54→14:36)
[2021-11-06] MEDS: ASPIRIN ENTERIC COATED 81 MG TABLET.DR. PO SCH (09:55)
[2021-11-06] MEDS: PREGABALIN 50 MG CAPSULE PO SCH (09:55)
[2021-11-06] MEDS: POTASSIUM CHLORIDE 20 MEQ TABLET.ER. PO SCH (09:56)
[2021-11-06] MEDS ORDERED: TRAM50TA PO (10:42)
[2021-11-06] MEDS ORDERED: PANT40TA77 PO (10:42)
[2021-11-06] MEDS ORDERED: POTA20TA4 PO (10:42)
--- NOTE | 2021-11-06 10:46 | SNU/HH DC ---
DISCHARGE ORDERS DISCHARGE INFORMATION: FINAL DIAGNOSIS Problems Medical Problems: (1) Congestive heart failure Status: Acute (2) GI bleed Status: Acute (3) Lower extremity edema Status: Acute (4) Severe anemia Status: Acute CONDITION ON DISCHARGE: Stable CODE STATUS: Code Status: Full ASSISTED: SNF STAY <30 DAYS: Yes HOSPICE: HOSPICE: No HOSPICE EVAL & TREAT: No LTAC: ADMIT TO LTAC: No POST DISCHARGE ORDERS: DIET AFTER DISCHARGE: Cardiac TREATMENT/EQUIPMENT ORDERS: Physical Therapy For: Evalulation/Treatment Occupational Therapy For: Evaluation/Treatment DISCHARGE MEDICATIONS: Home Meds Active Scripts Pantoprazole Sodium (PANTOPRAZOLE SODIUM ) 40 Mg Tablet.dr, 40 MG PO DAILYAC for . for 30 Days, #30 TAB.SR Prov:CASTLE,NIAL K III DO 11/06/21 Potassium Chloride (POTASSIUM CHLORIDE ) 20 Meq Tablet.er, 40 MEQ PO DAILY for . for 30 Days, #60 TAB.SR Prov:CASTLE,NIAL K III DO 11/06/21 Tramadol Hcl (TRAMADOL HCL) 50 Mg Tablet, 100 MG PO PRN Q6HRS PRN for MILD TO MODERATE PAIN for 10 Days, #20 TAB Prov:CASTLE,NIAL K III DO 11/06/21 Acetaminophen (TYLENOL) 325 Mg Tablet, 2 TAB PO QID for 7 Days, #56 TAB 2 Refills Prov:AUSTYN KIMBLE DO 04/24/20 Reported Medications Cyanocobalamin (Vitamin B-12) (VITAMIN B-12) 500 Mcg Tablet, 1 TAB PO DAILY for sup. for 30 Days, #30 TAB 0 Refills 10/29/21 Polyethylene Glycol 3350 (MIRALAX) 17 Gm Powd.pack, 1 PACKET PO DAILY PRN for CONSTIPATION for 2 Days, #2 PACKET 0 Refills dissolve in water 10/29/21 Atorvastatin Calcium (ATORVASTATIN CALCIUM) 40 Mg Tablet, 40 MG PO HS for FOR CHOLESTEROL, #30 TAB 0 Refills 10/29/21 Mirabegron (MYRBETRIQ) 50 Mg Tab.er.24h, 50 MG PO DAILY for OVERACTIVE BLADDER, TAB.SR 10/29/21 Aspirin (ASPIR-LOW) 81 Mg Tablet.dr, 1 TAB PO DAILY for heart health, #30 TAB 3 Refills 05/08/19 Furosemide (LASIX) 40 Mg Tablet, 80 MG PO DAILY for edema, TAB 03/29/19 Tamsulosin Hcl (FLOMAX) 0.4 Mg Cap.er.24h, 1 CAP PO BID for urinanation, #30 CAP 11 Refills 03/29/19 Pregabalin (LYRICA) 150 Mg Capsule, 200 CAP PO BID for neuropothy for 30 Days, CAP 04/19/14 Discontinued Reported Medications Potassium Chloride (POTASSIUM CHLORIDE ) 20 Meq Tablet.er, 20 MEQ PO DAILY for SUPPLEMENT, TAB.SR 10/29/21 Apixaban (ELIQUIS) 5 Mg Tablet, 2.5 MG PO BID for heart, TAB 03/29/19 Tramadol Hcl (TRAMADOL HCL) 50 Mg Tablet, 100 MG PO Q6HRS IV PRN for PAIN, TAB 0 Refills 04/19/14 VIRGINIE MIGUEL III DO Nov 06, 2021 10:46
[2021-11-06 11:00] VITALS: BP 157/56
--- NOTE | 2021-11-06 11:34 | PDOC ---
Date of Service: DATE: 11/06/21 TIME: 11:30 Subjective: Subjective: Leg hurts after sitting on edge of bed. Objective: Objective: Staff present - vitals normal. No bleeding. Nurse says awaiting COVID PCR prior to possible DC to SNU. Vital Signs: Vital Signs Date Time Temp Pulse Resp B/P (MAP) Pulse Ox O2 Delivery O2 Flow Rate FiO2 11/06/21 11:01 98 Room Air 11/06/21 07:00 98.2 69 20 116/53 (74) 98.2 11/05/21 07:00 1.0 Imaging: CXR 11/05 IMPRESSION: Mild left basilar opacities, which could be atelectasis or pneumonia. PE: GEN: looks pale, bit tremulous after therapy LUNGS: bit rattly, room air HEART: RRR ABD: S/ND/NT EXTREMITY: BLE edema NEURO/PSYCH: A & O 3 but forgetful A/P: Suspected diverticular bleed - resolved RICHARD - s/p pRBCs and IV iron H/o CAD and A Fib - ASA resumed UTI RLE pain - defer to primary -- Possible DC plans noted. Interval labs pending - await these. Hold Eliquis til next week. Justicifation of Admission Dx: Justifications for Admission: Justification of Admission Dx: N/A [place] Nov 06, 2021 11:34
[2021-11-06 12:00] LABS: HEMATOCRIT 24.7 % (39.0-53.0); HEMOGLOBIN 7.7 g/dL (13.0-17.5)
--- NOTE | 2021-11-06 12:11 | PDOC ---
Infectious Disease Note Subjective Subjective Patient feels better ROS ROS no n/v/d/ Vital Sign Vital Signs Vital Signs Date Time Temp Pulse Resp B/P (MAP) Pulse Ox O2 Delivery O2 Flow Rate FiO2 11/06/21 11:01 98 Room Air 11/06/21 11:00 98.0 69 18 157/56 (89) 98.0 11/05/21 07:00 1.0 Physical Exam PHYSICAL EXAM Vitals are stable HEENT normal Neck supple no lymphadenopathy Lungs clear Heart S1-S2 regular no gallop murmur Abdomen soft nontender no organomegaly Extremities no edema or cyanosis skin examination unremarkable [employer] alert awake no focal deficit Labs Lab Laboratory Tests Test 11/06/21 11:30 Hemoglobin 7.7 g/dL (13.0-17.5) Hematocrit 24.7 % (39.0-53.0) Mean Corpuscular Hemoglobin Concent 31 g/dL (31-37) Micro Microbiology 10/29/21 Urine Culture - Final, Complete Klebsiella Oxytoca Raoultella 10/28/21 Blood Culture - Preliminary, Resulted NO GROWTH AFTER 2 DAYS Objective Assessment UTI with Klebsiella Blood culture positive with multiple different species of coag negative staph likely contaminant GI bleed Severe anemia Plan Plan of Care dc ceftriaxone after today monitor labs and cultures Continue supportive care Discussed with nursing staff WIL WATSON MD Nov 06, 2021 12:11
[2021-11-06 12:36] LABS: ALBUMIN 1.8 g/dL (3.4-5.0); ALBUMIN/GLOBULIN RATIO 0.5 (1.0-1.7); CREATININE 1.8 mg/dL (0.7-1.3); POTASSIUM 4.2 mmol/L (3.5-5.1); TOTAL BILIRUBIN 0.4 mg/dL (0.2-1.0); TOTAL PROTEIN 5.6 g/dL (6.4-8.2)
[2021-11-06] MEDS: cefTRIAXone IV Push 1 GM VIAL. IVP SCH (12:56)
--- NOTE | 2021-11-06 13:35 | NUR ---
SS following up with discharge planning. SS reviewed pt chart and discussed with pt RN. Pt is currently on room air. COVID19 negative.PT/OT recommended senior living unit. PO diet. Pt accepted at [facility], ; fax [phone]. Discharge orders received and sent to [facility]. SS discussed with pt and pt's daughter in room and pt and family agreeable. Pt will discharge today and go to [facility] at 1500 via [facility] ambulance, . Pt, pt's RN, and pt's family notified.
[2021-11-06 15:00] VITALS: BP 116/59
--- NOTE | 2021-11-06 15:56 | NUR ---
Patient assessed for elopement risk per policy and protocol. Patient not deemed a risk. Patient IV and telemonitor discontinued Transferred to [facility] and transferred to [facility]. Denise Crisostomo, daughter, informed of where patient was going. Patient tolerated well.
--- NOTE | 2021-11-07 20:14 | DS ---
DATE OF DISCHARGE: 11/06/2021 ADMITTING DIAGNOSES: Gastrointestinal bleed, congestive heart failure, chronic kidney disease, benign prostatic hypertrophy and atrial fibrillation. DISCHARGE DIAGNOSIS: Resolving gastrointestinal bleed. CONSULTS: Infectious Disease and GI. PROCEDURES: 1. Colonoscopy, which showed no active bleeding, but clots were noted suggestive of a diverticular bleed. 2. EGD, which was essentially normal. HOSPITAL COURSE: The patient is a pleasant middle-aged male who presented with GI bleed. He was admitted. We gave him IV proton pump inhibitors and transfused him. We consulted GI. He was taken for the above procedures. Over the next few days, he slowly returned to his baseline. I saw and examined him yesterday. We discharged to group home. DISPOSITION: half-way. ACTIVITY: As tolerated. DIET: Low sodium. DISCHARGE MEDICATIONS: Please see the MRAD. Holding his Eliquis for 1 week. Continue his other home medications, which include p.r.n. Tylenol, aspirin 81 a day, atorvastatin 40 a day, B12, Lasix 80 a day, Myrbetriq 50 a day, MiraLax, Lyrica, Flomax 0.4 a day. We stopped his home Ultram. We also added in Protonix 40 a day, potassium 40 a day and p.r.n. TOTAL TIME: 32 minutes. FAVIAN/JARON/MICHELA DR: FAVIAN/prashanth TID: [id number]
== END 2021-11-06 15:56 | DRG 377 ==
LOC: ER 17:47 → 1 WEST ICU 20:00 → 5 NORTH 11-04 12:20
PROVIDERS: ADMIT Internal Medicine; ATTEND Internal Medicine
PROC: 30233N1 Transfusion of Nonautologous Red Blood Cells into Peripheral Vein, Percutaneous Approach (ICD-10-PCS; 2021-10-29)
PROC: 0DJ08ZZ Inspection of Upper Intestinal Tract, Via Natural or Artificial Opening Endoscopic (ICD-10-PCS; 2021-10-30)
PROC: 0DBN8ZX Excision of Sigmoid Colon, Via Natural or Artificial Opening Endoscopic, Diagnostic (ICD-10-PCS; 2021-11-03)
PROC: 0DBH8ZX Excision of Cecum, Via Natural or Artificial Opening Endoscopic, Diagnostic (ICD-10-PCS; principal; 2021-11-03 13:00)
DX: K57.31 Diverticulosis of large intestine without perforation or abscess with bleeding (principal); E43 Unspecified severe protein-calorie malnutrition; N39.0 Urinary tract infection, site not specified; N17.9 Acute kidney failure, unspecified; J98.11 Atelectasis; I13.0 Hypertensive heart and chronic kidney disease with heart failure and stage 1 through stage 4 chronic kidney disease, or unspecified chronic kidney disease; I50.32 Chronic diastolic (congestive) heart failure; I48.91 Unspecified atrial fibrillation; B95.7 Other staphylococcus as the cause of diseases classified elsewhere; B96.1 Klebsiella pneumoniae [K. pneumoniae] as the cause of diseases classified elsewhere; D50.0 Iron deficiency anemia secondary to blood loss (chronic); E11.22 Type 2 diabetes mellitus with diabetic chronic kidney disease; E78.00 Pure hypercholesterolemia, unspecified; E78.5 Hyperlipidemia, unspecified; E87.6 Hypokalemia; F17.210 Nicotine dependence, cigarettes, uncomplicated; I25.10 Atherosclerotic heart disease of native coronary artery without angina pectoris; K44.9 Diaphragmatic hernia without obstruction or gangrene; Z66 Do not resuscitate; K63.5 Polyp of colon; K76.0 Fatty (change of) liver, not elsewhere classified; M19.011 Primary osteoarthritis, right shoulder; N18.9 Chronic kidney disease, unspecified; N40.0 Benign prostatic hyperplasia without lower urinary tract symptoms; R09.02 Hypoxemia; Z20.822 Contact with and (suspected) exposure to COVID-19; Z82.49 Family history of ischemic heart disease and other diseases of the circulatory system; Z90.49 Acquired absence of other specified parts of digestive tract; Z90.5 Acquired absence of kidney; Z95.5 Presence of coronary angioplasty implant and graft; K21.9 Gastro-esophageal reflux disease without esophagitis; Z68.34 Body mass index [BMI] 34.0-34.9, adult
CPT/HCPCS: 36415; 36430; 43235; 45385; 71045; 78278; 80048; 80053; 81001; 82274; 82607; 82805; 83540; 83550; 83735; 83880; 84484; 85007; 85014; 85018; 85025; 85027; 85610; 86850; 86900; 86901; 86920; 87040; 87077; 87086; 87186; 87428; 93005; 94640; 94660; 94760; 96374; A4314; A9560; C9113; J0696; J1642; J1756; J1940; J2704; J3475; J3480; J7120; P9016; P9041; P9046; 97530-GO; 97530-GP; 97535-GO; 99285-25; G0378